=== PATIENT | female | born 1940 | race Caucasian/White ===

== ENCOUNTER 2017-05-07 16:05 | Emergency (ER) | payer OTHER ==
[2017-05-07 16:09] VITALS: BP 140/84; PULSE 84; TEMP 98; BMI 31.7
[2017-05-07] MEDS ORDERED: DIPHTH,PERTUSS(ACELL),TET 0.5 ML DISP.SYRIN IM ONE (16:51)
--- NOTE | 2017-05-07 16:54 | PDOC ---
History of Present Illness - General Chief Complaint: Injury Stated Complaint: LT FINGER LACERATION Time Seen by Provider: 05/07/17 16:21 History Source: Patient Exam Limitations: No Limitations - History of Present Illness Initial Comments: 05/07/17 16:50 76-year-old female presents to the ED with injury to her right thumb while cutting potatoes sustaining a laceration to the tip of her finger. Patient states tetanus was approximately 20 years ago and states is on no blood thinning medication. Patient has no other complaints at this time. Timing/Duration: 1 hour Severity: mild Associated Symptoms: reports: denies symptoms Past History - Travel Traveled outside of the country in the last 30 days: No Close contact w/someone who was outside of country & ill: No - Past Medical History Allergies/Adverse Reactions: Allergies Allergy/AdvReac Type Severity Reaction Status Date / Time Penicillins Allergy Verified 05/07/17 16:09 HTN: Yes - Suicide/Smoking/Psychosocial Hx Smoking History: Never smoked Information on smoking cessation initiated: No Hx Alcohol Use: No Drug/Substance Use Hx: No Substance Use Type: None Patient Lives Alone: No Lives with/in: spouse/SO Review of Systems - Review of Systems Able to Perform ROS?: Yes Constitutional: No: Symptoms Reported Integumentary: Yes: See HPI Neurological: No: Symptoms reported Hematologic/Lymphatic: No: Symptoms Reported *Physical Exam - Vital Signs Last Vital Signs Temp Pulse Resp BP Pulse Ox 98 F 84 18 140/84 99 05/07/17 16:08 05/07/17 16:08 05/07/17 16:08 05/07/17 16:08 05/07/17 16:08 - Physical Exam General Appearance: Yes: Nourished, Appropriately Dressed. No: Apparent Distress Integumentary: positive: Other (noted 1 cm avulsed skin to the tip of rt thumb) Neurologic: positive: Motor Strength 5/5 (ambulatoryambulatory) Medical Decision Making - Medical Decision Making 05/07/17 16:54 Patient with laceration to right thumb. Patient had Surgicel placed with dry sterile gauze and ordered for tetanus. Patient will be discharged home with recommendations to change bandage within 4-5 days. *DC/Admit/Observation/Transfer Diagnosis at time of Disposition: Laceration of right thumb Qualifiers: Encounter type: initial encounter Damage to nail status: without damage Foreign body presence: without foreign body Qualified Code(s): S61.011A - Laceration without foreign body of right thumb without damage to nail, initial encounter - Discharge Dispostion Disposition: HOME Condition at time of disposition: Improved - Referrals Referrals: Kishor Torres MD [Primary Care Provider] - - Patient Instructions Printed Discharge Instructions: DI for Laceration Repair -- Finger Additional Instructions: Keep bandage clean and dry for the next 4-5 days and may change removing slowly. May take Tylenol for discomfort.
== END 2017-05-07 17:19 | disposition home or self-care (01) ==
LOC: JERFT 16:05
PROC: 3E0234Z Introduction of Serum, Toxoid and Vaccine into Muscle, Percutaneous Approach (ICD-10-PCS; principal; 2017-05-07)
PROC: 0HQFXZZ Repair Right Hand Skin, External Approach (ICD-10-PCS; 2017-05-07)
DX: S61.011A Laceration without foreign body of right thumb without damage to nail, initial encounter (principal); W26.0XXA Contact with knife, initial encounter; Y93.G1 Activity, food preparation and clean up; Y92.030 Kitchen in apartment as the place of occurrence of the external cause; I10 Essential (primary) hypertension
CPT/HCPCS: 90715; 99281-25

== ENCOUNTER 2019-08-24 13:56 | Emergency (ER) | payer OTHER ==
[2019-08-24 14:15] VITALS: TEMP 98.6; BMI 27.4
--- NOTE | 2019-08-24 14:22 | PDOC ---
History of Present Illness - General Chief Complaint: Injury Stated Complaint: INJURY Time Seen by Provider: 08/24/19 14:21 History Source: Patient Exam Limitations: No Limitations - History of Present Illness Initial Comments: 08/24/19 14:22 PCP: Previously Dr. Torres, currently none HPI: 78yo F without PCP with PMH hard of hearing, Arthritis, HLD, bladder frequency issue, presenting from home 1 hours s/p mechanical fall at home. Patient was finishing mopping her floor at 13:00, slipped and fell hitting her left hip/thigh and left confucianism. Denies any prodrome, chest pain, SOB, syncope, preceding dizziness, weakness, or visual disturbances. Patient felt dizzy after her fall, felt unable to stand up and crawled to the phone. She reports that EMS arrived, she still felt dizzy when they attempted to help her up so she was lifted into the stretcher and has yet to ambulate. She now endorses "soreness" of the lateral aspect of her proximal thigh and head. States that she doesn't think she broke anything. Endorses feeling a little dehydrated lately with dry mouth. States that she may have diabetes, reporting that her mother had diabetes with onset in her 70s. Also endorses a "trip bladder" that causes urinary frequency. Denies dysuria, pain, foul odor, hematuria. All: PCNs Meds: Per chart PMH: As above PSH: Hysterectomy, right knee replacement, L1-L5 fusion for herniated disks FHx: Late onset diabetes SHx: Lives alone in apartment, nonsmoker / no ETOH or Illicits Past History - Travel Traveled outside of the country in the last 30 days: No Close contact w/someone who was outside of country & ill: No - Past Medical History Allergies/Adverse Reactions: Allergies Allergy/AdvReac Type Severity Reaction Status Date / Time Penicillins Allergy Verified 05/07/17 16:09 Home Medications: Ambulatory Orders Naproxen Sodium [Aleve] 220 mg PO PRN 08/24/19 COPD: No HTN: Yes - Immunization History Immunization Up to Date: No - Psycho Social/Smoking Cessation Hx Smoking History: Unknown if ever smoked Have you smoked in the past 12 months: No Hx Alcohol Use: No Drug/Substance Use Hx: No Substance Use Type: None Review of Systems - Review of Systems Able to Perform ROS?: Yes Is the patient limited Haitian proficient: Yes Constitutional: No: Chills, Fever, Weakness HEENTM: No: Nose Congestion, Throat Pain Respiratory: Yes: Cough. No: Shortness of Breath, Wheezing, Productive cough Cardiac (ROS): Yes: Lightheadedness (intermittently with standing). No: Chest Pain, Edema, Irregular Heart Rate, Palpitations, Syncope, Chest Tightness ABD/GI: No: Constipated, Diarrhea, Nausea, Vomiting : Yes: Frequency (baseline). No: Burning, Dysuria, Discharge, Hematuria, Incontinence Musculoskeletal: Yes: See HPI, Muscle Pain (per hpi). No: Back Pain, Joint Pain , Joint Swelling, Muscle Weakness, Joint Stiffness Integumentary: No: Bruising, Erythema, Rash, Sweating Neurological: No: Headache, Numbness, Tingling, Weakness Psychiatric: No: Stressors, Change in Appetite Endocrine: No: Increased Thirst, Increased Urine, Change in Weight Hematologic/Lymphatic: No: Anemia, Blood Clots, Easy Bleeding All Other Systems: Reviewed and Negative *Physical Exam - Vital Signs Last Vital Signs Temp Pulse Resp BP Pulse Ox 98.6 F 98 H 20 140/82 97 08/24/19 14:00 08/24/19 14:00 08/24/19 14:00 08/24/19 14:00 08/24/19 14:00 - Physical Exam 08/24/19 15:07 VITALS: Mild hypertension, borderline tachycardic (90s-100s), 97% on RA, afebrile GEN: Well appearing, NAD, comfortable, cooperative, laughing, coughing. AAOx3. HEENT: NCAT - no bruising / non-tender in region of contact with floor, EOMI, PERRLA. No facial asymmetry. Poor dentition, edentulous top teeth. Moist mucous membranes. Supple neck w/ FROM. CV: S1/S2, irregular rhythm, mild tachycardia, no m/r/g appreciated. LUNG: Good air movement, crackles at bilateral bases, cough, no wheezes, rales, rhonchi. BACK: Non-tender spine, no CVA tenderness, no bruises or rashes. GI: Soft, ndnt, +BS, no guarding, no rebound. No masses. EXTREMITIES: 2+ distal pulses. Trace b/l LE edema. No obvious deformities of all extremities - both LE same length, able to range without pain, lateral aspect of LLE with palpable presumed hematoma - no ecchymosis or other skin changes, no skin breaks. SKIN: Warm, dry, no rashes appreciated. PSYCH: Normal mood and affect. NEURO: Moving all extremities well. Gait not assessed, will assess after initial testing. ED Treatment Course - LABORATORY CBC & Chemistry Diagram: 08/24/19 15:15 08/24/19 15:15 Medical Decision Making - Medical Decision Making 08/24/19 15:13 78yo F without PCP with PMH hard of hearing, Arthritis, HLD, bladder frequency issue, presenting from home 1 hours s/p mechanical fall at home. History notable for no complaints, limited contact with healthcare professionals recently, lives alone unassisted. Exam notable for irregular HR, cough, lower lung field crackles, unimpressive femur / head exams. Together concerning for r/ o fracture, ICH, assess ambulation ability, undiagnosed cardiovascular disease ( irregular, dizzy), acute vs subacute pulmonary process (cough / crackles). - CBC, CMP, Mg, Cardiac Profile, Coags, BNP - EKG - NCHCT, Cervical Spine - Xray, LLE Hip, Pelvis, Femur, CXR 08/24/19 18:00 - Mild leukocytosis - Normal electrolytes, renal function - Normal LFTs - Normal Troponin - Elevated CPK 316 - BNP wnl - Normal glucose - Given 1g Ofirmev for pain 08/24/19 18:02 - Central canal stenosis c6-c7 noted on CT, no intracranial pathology - Xray films pending - EKG pending 08/24/19 18:14 - L Hip/Pelvis/Femur without acute fracture on my read, official pending - CXR without consolidation, effusion, PTX, normal mediastinum and cardiac contours on my read 08/24/19 18:30 - EKG with sinus arrhythmia, 95 BPM, irregular, sinus, [id number], no ischemic changes - Patient able to ambulate with ease, complains only of minimal discomfort Dispo: Home Discharge - Discharge Information Problems reviewed: Yes Clinical Impression/Diagnosis: Fall Qualifiers: Encounter type: initial encounter Qualified Code(s): W19.XXXA - Unspecified fall, initial encounter Condition: Improved Disposition: HOME - Admission No - Follow up/Referral Referrals: [facility] [place] [Provider Group] Rayo Wing MD [Staff Physician] - - Patient Discharge Instructions Additional Instructions: You were seen and evaluated in the ER after a fall. You were found to not have any broken bones. Please continue to take your home medications as directed. You make take over the counter pain medication as per label instructions. Follow up with the provided primary care doctor within the next 1-3 days to establish care and have follow up. Return to the ED for any new or concerning symptoms which may include but are not limited to: nausea, vomiting, headache, inability to walk. - Post Discharge Activity
--- NOTE | 2019-08-24 14:56 | PDOC ---
Documentation entered by Bismark Villavicencio SCRIBE, acting as scribe for Rina Driscoll MD. Rina Driscoll MD: This documentation has been prepared by the Maye cabral Nirvannie, SCRIBE, under my direction and personally reviewed by me in its entirety. I confirm that the documentation accurately reflects all work, treatment, procedures, and medical decision making performed by me. Attending Attestation - Resident Resident Name: JacobBill - ED Attending Attestation I have performed the following: I have examined & evaluated the patient, The case was reviewed & discussed with the resident, I agree w/resident's findings & plan, Exceptions are as noted - HPI HPI: 08/24/19 14:48 78 yo f ho arthritis, hld, hysterctomy, right knee surgery, here s/p slip and fall, landed on left hip, c/o left hip pain. has not ambulated since here fall because she was feeling dizzy when she stood up. no mod factors. no f/c no cp no syncope. uncertain if she hit her head when she fell. no h/o prior hip surgery. - Physicial Exam PE: 08/24/19 14:54 awake alert head atraumatic no c spine tenderness. lungs with crackles at bases. heart irreg reg. abd soft nt pelvis. From at bilat hips. no spinal tenderness. moves all four ext. GCS 15. - Medical Decision Making 08/24/19 14:55 78 yo F not following with a doctor currently. lives alone, s/p sli pand fall head trauma. hip pain left. plan r/o fx, ct head c xpine. also pt c/o feeling dizzy, on exam bilat lungs with crackles. will cxr xray pelvis, and ct head. labs with cbc cmp trop bnp. 08/24/19 17:[address] cervical spine read, and xrays, signed out to oncoming attending. will rquire trial ambulation for discharge. ct head negatve for acute disease.
[2019-08-24 16:02] LABS: BASO % 0.6 % (0-2.0); EOS % 0.5 % (0-4.5); HEMATOCRIT 38.4 % (32.4-45.2); HEMOGLOBIN 12.7 GM/dL (10.7-15.3); LYMPH % 8.6 % (8-40); MCH 33.8 pg (25.7-33.7); MCHC 33.1 g/dl (32.0-36.0); MEAN CELL VOLUME 101.9 fl (80-96); MONO % 5.3 % (3.8-10.2); PLATELET COUNT 223 K/MM3 (134-434); RBC 3.76 M/mm3 (3.60-5.2); RDW 13.1 % (11.6-15.6)
[2019-08-24 16:15] LABS: INR 0.93 (0.83-1.09)
[2019-08-24 16:18] LABS: ACTIVATED PTT 35.1 SECONDS (25.2-36.5)
[2019-08-24] MEDS ORDERED: LORazepam 2 MG TABLET PO ONE (16:25)
[2019-08-24 16:28] LABS: ALBUMIN 4.1 g/dl (3.4-5.0); BILIRUBIN,TOTAL 0.5 mg/dL (0.2-1); BLOOD UREA NITROGEN 22.3 mg/dL (7-18); CALCIUM 8.7 mg/dL (8.5-10.1); CREATININE 0.9 mg/dL (0.55-1.3); MAGNESIUM 2.1 mg/dL (1.8-2.4); POTASSIUM 4.3 mmol/L (3.5-5.1); TOT PROT 7.3 g/dl (6.4-8.2)
[2019-08-24 16:30] LABS: N-TERMINAL BNP 180.1 pg/ml (5-450)
[2019-08-24] MEDS ORDERED: ACETAMINOPHEN 1000 MG/100 ML VIAL (NON FORMULARY) IVPB ONE (17:23)
[2019-08-24] MEDS ORDERED: ACETAMINOPHEN INJECTION 200 ML IVPB ONE (18:04)
[2019-08-24 19:08] VITALS: BP 132/80; PULSE 90
--- NOTE | 2019-08-25 11:51 | EKG ---
Test Reason : Blood Pressure : / mmHG Vent. Rate : 095 BPM Atrial Rate : 095 BPM P-R Int : 128 ms QRS Dur : 082 ms QT Int : 354 ms P-R-T Axes : 066 017 046 degrees QTc Int : 444 ms SINUS RHYTHM WITH PREMATURE SUPRAVENTRICULAR COMPLEXES NONSPECIFIC ST ABNORMALITY ABNORMAL ECG WHEN COMPARED WITH ECG OF 16-JUN-2003 11:40, PREMATURE SUPRAVENTRICULAR COMPLEXES ARE NOW PRESENT T WAVE AMPLITUDE HAS DECREASED IN ANTERIOR LEADS QT HAS LENGTHENED Confirmed by MARGARITO HOUSER MD ([id number]) on 08/25/2019 11:51:27 AM Referred By: Confirmed By:MARGARITO HOUSER MD
== END 2019-08-24 21:59 | disposition home or self-care (01) ==
LOC: JER 13:56
DX: M25.552 Pain in left hip (principal); M79.652 Pain in left thigh; W01.0XXA Fall on same level from slipping, tripping and stumbling without subsequent striking against object, initial encounter; Y93.E5 Activity, floor mopping and cleaning; Y92.038 Other place in apartment as the place of occurrence of the external cause; Y99.8 Other external cause status; E78.5 Hyperlipidemia, unspecified; M12.9 Arthropathy, unspecified; H91.93 Unspecified hearing loss, bilateral; R35.0 Frequency of micturition
CPT/HCPCS: 36415; 70450-TC; 71045-TC-FY; 72125-TC; 73523-TC-FY; 73552-TC-LT-FY; 80053; 82550; 82553; 83735; 83880; 84484; 85025; 85610; 85730; 93005; 93010; 99283-25; J0131

== ENCOUNTER 2021-07-03 03:56 | Inpatient (IN) | payer BC, OTHER ==
[2021-07-03] MEDS ORDERED: LIDOCAINE 5% TOPICAL PATCH TP ONE (04:44)
[2021-07-03] MEDS ORDERED: SODIUM CHLORIDE 0.9% 500 ML INFUS.BAG IV ONE (04:45)
[2021-07-03] MEDS ORDERED: ACETAMINOPHEN 1000 MG/100 ML VIAL IVPB ONE (04:45)
[2021-07-03] MEDS ORDERED: LIDOCAINE 5% TOPICAL PATCH ONE (04:53)
[2021-07-03] MEDS ORDERED: ACETAMINOPHEN INJECTION 100 ML IVPB ONE (04:53)
[2021-07-03 05:48] LABS: BASO % 0.7 % (0-2.0); EOS % 0.1 % (0-4.5); HEMATOCRIT 37.9 % (32.4-45.2); LYMPH % 8.1 % (8-40); MCH 34.5 pg (25.7-33.7); MCHC 34.3 g/dl (32.0-36.0); MEAN CELL VOLUME 100.5 fl (80-96); MEAN PLT VOLUME 7.5 fl (7.5-11.1); MONO % 9.3 % (3.8-10.2); NEUT % 81.8 % (42.8-82.8); PLATELET COUNT 215 10^3/uL (134-434); RBC 3.77 M/mm3 (3.60-5.2); RDW 12.8 % (11.6-15.6)
[2021-07-03 05:51] LABS: EPI CELLS 12 /uL (0-25.1); HYALINE CASTS 3 /uL (0-3.1); URINE APPEARANCE TURBID; URINE BACTERIA >9,000 /uL (0-1359); URINE BILIRUBIN NEGATIVE (NEGATIVE); URINE COLOR YELLOW; URINE GLUCOSE (UA) NEGATIVE (NEGATIVE); URINE KETONE NEGATIVE (NEGATIVE); URINE LEUK ESTERASE 3+ (NEGATIVE); URINE NITRITE POSITIVE (NEGATIVE); URINE PROTEIN 2+ (NEGATIVE); URINE RBC 142 /uL (0-23.9); URINE UROBILINOGEN 0.2 mg/dL (0.2-1.0); URINE WBC 2587 /uL (0-25.8)
[2021-07-03 06:06] LABS: CHLORIDE 111 mmol/L (98-107); SODIUM 143 mmol/L (136-145)
[2021-07-03 06:08] LABS: ALBUMIN 3.2 g/dl (3.4-5.0); ANION GAP 7 MMOL/L (8-16); BLOOD UREA NITROGEN 25.1 mg/dL (7-18); CALCIUM 8.8 mg/dL (8.5-10.1); CO2 25 mmol/L (21-32); GLUCOSE,RANDOM 143 mg/dL (74-106)
[2021-07-03 06:11] LABS: SGPT/ALT 48 U/L (13-61)
[2021-07-03 06:12] LABS: CREATININE 1.2 mg/dL (0.55-1.3); SGOT/AST 29 U/L (15-37)
[2021-07-03 06:13] LABS: BILIRUBIN,TOTAL 0.5 mg/dL (0.2-1); TOT PROT 7.2 g/dl (6.4-8.2)
[2021-07-03 06:14] LABS: ALK PHOS 64 U/L (45-117)
[2021-07-03] MEDS ORDERED: LIDOCAINE PATCH REMOVAL MC ONE (17:00)
[2021-07-03] MEDS: TAMSULOSIN HCL 0.4 MG CAP PO SCH (17:09)
[2021-07-03] MEDS: ACETAMINOPHEN 325 MG TABLET (FP) PO PRN (17:14)
[2021-07-03] MEDS ORDERED: HEPARIN NA (PORCINE) 5,000 UNITS/ML 1ML VIAL SQ SCH (22:00)
[2021-07-04 08:46] LABS: BASO % 0.8 % (0-2.0); EOS % 1.3 % (0-4.5); HEMOGLOBIN 12.7 GM/dL (10.7-15.3); LYMPH % 14.4 % (8-40); MCH 33.9 pg (25.7-33.7); MCHC 34.2 g/dl (32.0-36.0); MEAN CELL VOLUME 99.2 fl (80-96); MEAN PLT VOLUME 7.1 fl (7.5-11.1); MONO % 11.4 % (3.8-10.2); NEUT % 72.1 % (42.8-82.8); PLATELET COUNT 212 10^3/uL (134-434); RBC 3.73 M/mm3 (3.60-5.2); RDW 13.1 % (11.6-15.6); WHITE BLOOD COUNT 7.8 K/mm3 (4.0-10.0)
[2021-07-04] MEDS: TAMSULOSIN HCL 0.4 MG CAP PO SCH (08:56)
[2021-07-04 09:17] LABS: ALBUMIN 2.8 g/dl (3.4-5.0); BLOOD UREA NITROGEN 23.6 mg/dL (7-18); CALCIUM 8.7 mg/dL (8.5-10.1)
[2021-07-04 09:18] LABS: BILIRUBIN,TOTAL 0.4 mg/dL (0.2-1); MAGNESIUM 2.4 mg/dL (1.8-2.4)
[2021-07-04 09:19] LABS: TOT PROT 6.8 g/dl (6.4-8.2)
[2021-07-04 09:20] LABS: PHOSPHOROUS 3.6 mg/dL (2.5-4.9)
[2021-07-04] MEDS ORDERED: amLODIPine BESYLATE 5 MG TABLET (FP) PO ONE (09:35)
[2021-07-04] MEDS ORDERED: amLODIPine BESYLATE 5 MG TABLET (FP) ONE (10:37)
[2021-07-04] MEDS ORDERED: ACETAMINOPHEN INJECTION 100 ML IVPB ONE (10:46)
[2021-07-04] MEDS: ACETAMINOPHEN 325 MG TABLET (FP) PO PRN (21:05)
[2021-07-05] MEDS: ACETAMINOPHEN 325 MG TABLET (FP) PO PRN ×2 (05:08→22:45)
[2021-07-05] MEDS: TAMSULOSIN HCL 0.4 MG CAP PO SCH (08:53)
[2021-07-05] MEDS: ENOXAPARIN NA (PORCINE) 40 MG/0.4 ML DISP.SYRIN SQ SCH (08:59)
[2021-07-05] MEDS: amLODIPine BESYLATE 5 MG TABLET (FP) PO SCH (09:00)
[2021-07-05 09:59] LABS: HEMATOCRIT 37.2 % (32.4-45.2); MCH 34.8 pg (25.7-33.7); MCHC 34.9 g/dl (32.0-36.0); MEAN CELL VOLUME 99.7 fl (80-96); MEAN PLT VOLUME 7.3 fl (7.5-11.1); PLATELET COUNT 228 10^3/uL (134-434); RBC 3.73 M/mm3 (3.60-5.2); RDW 12.4 % (11.6-15.6); WHITE BLOOD COUNT 7.4 K/mm3 (4.0-10.0)
[2021-07-05 10:16] LABS: ALBUMIN 2.8 g/dl (3.4-5.0); BLOOD UREA NITROGEN 23.6 mg/dL (7-18); CALCIUM 8.3 mg/dL (8.5-10.1); MAGNESIUM 2.3 mg/dL (1.8-2.4)
[2021-07-05 10:19] LABS: PHOSPHOROUS 3.8 mg/dL (2.5-4.9)
[2021-07-05 10:21] LABS: BILIRUBIN,TOTAL 0.5 mg/dL (0.2-1); TOT PROT 6.8 g/dl (6.4-8.2)
[2021-07-05 10:28] LABS: CREATININE 1.1 mg/dL (0.55-1.3)
[2021-07-05] MEDS: KETOROLAC TROMETHAMINE 15 MG/ML VIAL IVPUSH PRN (17:33)
[2021-07-06] MEDS: TAMSULOSIN HCL 0.4 MG CAP PO SCH (07:57)
[2021-07-06] MEDS: ENOXAPARIN NA (PORCINE) 40 MG/0.4 ML DISP.SYRIN SQ SCH (09:02)
[2021-07-06] MEDS: amLODIPine BESYLATE 5 MG TABLET (FP) PO SCH (09:02)
[2021-07-06 10:50] LABS: EOS % 1.6 % (0-4.5); HEMATOCRIT 37.6 % (32.4-45.2); LYMPH % 19.2 % (8-40); MCH 34.3 pg (25.7-33.7); MCHC 34.5 g/dl (32.0-36.0); MEAN CELL VOLUME 99.5 fl (80-96); MEAN PLT VOLUME 6.8 fl (7.5-11.1); MONO % 15.3 % (3.8-10.2); NEUT % 62.9 % (42.8-82.8); PLATELET COUNT 260 10^3/uL (134-434); RBC 3.78 M/mm3 (3.60-5.2); RDW 12.9 % (11.6-15.6); WHITE BLOOD COUNT 9.9 K/mm3 (4.0-10.0)
[2021-07-06 11:54] LABS: ALBUMIN 2.8 g/dl (3.4-5.0); BILIRUBIN,TOTAL 0.3 mg/dL (0.2-1); BLOOD UREA NITROGEN 22.9 mg/dL (7-18); CALCIUM 8.3 mg/dL (8.5-10.1); CREATININE 1.1 mg/dL (0.55-1.3); MAGNESIUM 2.1 mg/dL (1.8-2.4); TOT PROT 7.1 g/dl (6.4-8.2)
[2021-07-06] MEDS: ACETAMINOPHEN 325 MG TABLET (FP) PO PRN (19:42)
[2021-07-07] MEDS ORDERED: PT OWN MED DRAWER 7, Y5N ONE (09:19)
[2021-07-07] MEDS: amLODIPine BESYLATE 5 MG TABLET (FP) PO SCH (09:25)
[2021-07-07] MEDS: TAMSULOSIN HCL 0.4 MG CAP PO SCH (09:25)
[2021-07-07 09:42] LABS: HEMATOCRIT 38.2 % (32.4-45.2); HEMOGLOBIN 13.1 GM/dL (10.7-15.3); MCH 34.3 pg (25.7-33.7); MCHC 34.2 g/dl (32.0-36.0); MEAN CELL VOLUME 100.2 fl (80-96); PLATELET COUNT 286 10^3/uL (134-434); RBC 3.82 M/mm3 (3.60-5.2); WHITE BLOOD COUNT 10.1 K/mm3 (4.0-10.0)
[2021-07-07] MEDS: ENOXAPARIN NA (PORCINE) 40 MG/0.4 ML DISP.SYRIN SQ SCH (10:00)
[2021-07-07 10:23] LABS: ALBUMIN 2.9 g/dl (3.4-5.0); BLOOD UREA NITROGEN 20.9 mg/dL (7-18)
[2021-07-07 10:24] LABS: MAGNESIUM 2.5 mg/dL (1.8-2.4)
[2021-07-07 10:26] LABS: PHOSPHOROUS 3.4 mg/dL (2.5-4.9)
[2021-07-07 10:28] LABS: BILIRUBIN,TOTAL 0.5 mg/dL (0.2-1); TOT PROT 7.4 g/dl (6.4-8.2)
[2021-07-07 11:28] VITALS: BMI 31.8
[2021-07-07] MEDS: ACETAMINOPHEN 325 MG TABLET (FP) PO PRN (20:20)
[2021-07-07] MEDS: KETOROLAC TROMETHAMINE 15 MG/ML VIAL IVPUSH PRN (22:12)
[2021-07-08] MEDS: TAMSULOSIN HCL 0.4 MG CAP PO SCH (08:10)
[2021-07-08 09:04] LABS: BASO % 0.8 % (0-2.0); EOS % 1.7 % (0-4.5); HEMATOCRIT 37.6 % (32.4-45.2); HEMOGLOBIN 12.7 GM/dL (10.7-15.3); LYMPH % 17.4 % (8-40); MCHC 33.7 g/dl (32.0-36.0); MONO % 8.6 % (3.8-10.2); NEUT % 71.5 % (42.8-82.8); PLATELET COUNT 284 10^3/uL (134-434); RBC 3.73 M/mm3 (3.60-5.2); RDW 13.1 % (11.6-15.6); WHITE BLOOD COUNT 8.6 K/mm3 (4.0-10.0)
[2021-07-08 09:13] LABS: CALCIUM 8.8 mg/dL (8.5-10.1)
[2021-07-08 09:14] LABS: ALBUMIN 2.7 g/dl (3.4-5.0); BLOOD UREA NITROGEN 23.7 mg/dL (7-18); MAGNESIUM 2.6 mg/dL (1.8-2.4)
[2021-07-08] MEDS ORDERED: SODIUM CHLORIDE 0.45% 1,000 ML IV SCH ×2 (09:15→12:15)
[2021-07-08 09:17] LABS: PHOSPHOROUS 3.5 mg/dL (2.5-4.9)
[2021-07-08 09:19] LABS: BILIRUBIN,TOTAL 0.4 mg/dL (0.2-1); TOT PROT 7.1 g/dl (6.4-8.2)
[2021-07-08] MEDS ORDERED: PROPOFOL 20 ML ONE ×3 (10:29)
[2021-07-08] MEDS ORDERED: SUCCINYLCHOLINE CHLORIDE 200 MG/10 ML SYRINGE ONE (10:36)
[2021-07-08] MEDS: amLODIPine BESYLATE 5 MG TABLET (FP) PO SCH (10:50)
[2021-07-08] MEDS ORDERED: HYDROmorphone HCl 2 MG/ML VIAL IM ONE (11:57)
[2021-07-08] MEDS ORDERED: ONDANSETRON 4 MG/2 ML VIAL IVPUSH PRN (14:24)
[2021-07-08] MEDS: LACTATED RINGERS SOLUTION 1,000 ML IV SCH ×2 (14:52→23:12)
[2021-07-08] MEDS: oxyCODONE HCL 5 MG TABLET PO PRN ×2 (15:07→20:43)
[2021-07-08] MEDS: ACETAMINOPHEN 325 MG TABLET (FP) PO PRN (20:42)
[2021-07-09] MEDS: ACETAMINOPHEN 325 MG TABLET (FP) PO PRN ×2 (02:25→11:50)
[2021-07-09] MEDS: oxyCODONE HCL 5 MG TABLET PO PRN ×3 (02:25→20:46)
[2021-07-09] MEDS: LACTATED RINGERS SOLUTION 1,000 ML IV SCH (08:01)
[2021-07-09] MEDS: TAMSULOSIN HCL 0.4 MG CAP PO SCH ×2 (08:30→11:49)
[2021-07-09 08:53] LABS: BASO % 0.4 % (0-2.0); HEMATOCRIT 32.8 % (32.4-45.2); MCH 33.8 pg (25.7-33.7); MCHC 33.5 g/dl (32.0-36.0); MEAN CELL VOLUME 101.1 fl (80-96); MEAN PLT VOLUME 7.3 fl (7.5-11.1); MONO % 4.8 % (3.8-10.2); NEUT % 86.8 % (42.8-82.8); PLATELET COUNT 220 10^3/uL (134-434); RBC 3.25 M/mm3 (3.60-5.2); RDW 13.1 % (11.6-15.6); WHITE BLOOD COUNT 17.6 K/mm3 (4.0-10.0)
[2021-07-09] MEDS ORDERED: amLODIPine BESYLATE 5 MG TABLET (FP) PO SCH (10:00)
[2021-07-09 12:06] LABS: ALBUMIN 2.3 g/dl (3.4-5.0); BILIRUBIN,TOTAL 0.6 mg/dL (0.2-1); BLOOD UREA NITROGEN 22.8 mg/dL (7-18); CREATININE 1.3 mg/dL (0.55-1.3); MAGNESIUM 2.1 mg/dL (1.8-2.4); PHOSPHOROUS 3.7 mg/dL (2.5-4.9); TOT PROT 6.3 g/dl (6.4-8.2)
[2021-07-09] MEDS ORDERED: SODIUM CHLORIDE 0.45% 1,000 ML IV SCH (12:45)
[2021-07-09] MEDS ORDERED: SODIUM CHLORIDE 1,000 ML IV SCH (12:45)
[2021-07-09] MEDS ORDERED: POLYETHYLENE GLYCOL 3350 119 GM BTL PO ONE (19:48)
[2021-07-10] MEDS: oxyCODONE HCL 5 MG TABLET PO PRN ×3 (02:25→17:54)
[2021-07-10] MEDS ORDERED: ALBUTEROL SO4 2.5/IPRATROPIUM 0.5 INH SOL 3 ML VIAL.NEB. NEB ONE (08:55)
[2021-07-10 09:25] LABS: HEMATOCRIT 32.1 % (32.4-45.2); MCHC 34.3 g/dl (32.0-36.0); MEAN CELL VOLUME 99.2 fl (80-96); MEAN PLT VOLUME 6.9 fl (7.5-11.1); PLATELET COUNT 228 10^3/uL (134-434); RBC 3.23 M/mm3 (3.60-5.2); RDW 12.9 % (11.6-15.6); WHITE BLOOD COUNT 14.4 K/mm3 (4.0-10.0)
[2021-07-10 11:25] LABS: ALBUMIN 2.3 g/dl (3.4-5.0); BILIRUBIN,TOTAL 0.5 mg/dL (0.2-1); BLOOD UREA NITROGEN 21.6 mg/dL (7-18); CALCIUM 8.2 mg/dL (8.5-10.1); CREATININE 1.3 mg/dL (0.55-1.3); MAGNESIUM 2.2 mg/dL (1.8-2.4); PHOSPHOROUS 2.8 mg/dL (2.5-4.9); TOT PROT 6.5 g/dl (6.4-8.2)
[2021-07-10] MEDS: ENOXAPARIN NA (PORCINE) 40 MG/0.4 ML DISP.SYRIN SQ SCH (11:43)
[2021-07-10] MEDS: amLODIPine BESYLATE 5 MG TABLET (FP) PO SCH (11:44)
[2021-07-10] MEDS: TAMSULOSIN HCL 0.4 MG CAP PO SCH (11:44)
[2021-07-10] MEDS: ACETAMINOPHEN 325 MG TABLET (FP) PO PRN (20:10)
[2021-07-11] MEDS: oxyCODONE HCL 5 MG TABLET PO PRN (07:41)
[2021-07-11] MEDS: TAMSULOSIN HCL 0.4 MG CAP PO SCH (07:41)
[2021-07-11] MEDS: amLODIPine BESYLATE 5 MG TABLET (FP) PO SCH (09:16)
[2021-07-11] MEDS: ENOXAPARIN NA (PORCINE) 40 MG/0.4 ML DISP.SYRIN SQ SCH (09:16)
[2021-07-11 09:45] LABS: HEMATOCRIT 34.5 % (32.4-45.2); HEMOGLOBIN 11.7 GM/dL (10.7-15.3); MCH 33.8 pg (25.7-33.7); MCHC 33.9 g/dl (32.0-36.0); MEAN CELL VOLUME 99.8 fl (80-96); MEAN PLT VOLUME 7.1 fl (7.5-11.1); PLATELET COUNT 266 10^3/uL (134-434); RBC 3.46 M/mm3 (3.60-5.2); RDW 13.1 % (11.6-15.6); WHITE BLOOD COUNT 11.4 K/mm3 (4.0-10.0)
[2021-07-11 10:45] LABS: CALCIUM 8.7 mg/dL (8.5-10.1)
[2021-07-11] MEDS: traMADol HCL 50 MG TABLET PO PRN (15:16)
[2021-07-11] MEDS: ACETAMINOPHEN 325 MG TABLET (FP) PO PRN (22:07)
[2021-07-12] MEDS: ACETAMINOPHEN 325 MG TABLET (FP) PO PRN (02:37)
[2021-07-12 09:11] LABS: BASO % 0.6 % (0-2.0); EOS % 1.5 % (0-4.5); HEMATOCRIT 35.8 % (32.4-45.2); HEMOGLOBIN 12.2 GM/dL (10.7-15.3); LYMPH % 12.8 % (8-40); MCH 33.7 pg (25.7-33.7); MEAN CELL VOLUME 99.1 fl (80-96); MEAN PLT VOLUME 6.8 fl (7.5-11.1); MONO % 4.9 % (3.8-10.2); NEUT % 80.2 % (42.8-82.8); PLATELET COUNT 295 10^3/uL (134-434); RBC 3.61 M/mm3 (3.60-5.2); RDW 13.1 % (11.6-15.6); WHITE BLOOD COUNT 10.1 K/mm3 (4.0-10.0)
[2021-07-12] MEDS: traMADol HCL 50 MG TABLET PO PRN ×2 (10:10→19:42)
[2021-07-12] MEDS: amLODIPine BESYLATE 5 MG TABLET (FP) PO SCH (10:10)
[2021-07-12] MEDS: TAMSULOSIN HCL 0.4 MG CAP PO SCH (10:10)
[2021-07-12] MEDS: ENOXAPARIN NA (PORCINE) 40 MG/0.4 ML DISP.SYRIN SQ SCH (10:11)
[2021-07-12 12:55] LABS: BLOOD UREA NITROGEN 25.2 mg/dL (7-18); CALCIUM 8.8 mg/dL (8.5-10.1); MAGNESIUM 2.4 mg/dL (1.8-2.4); PHOSPHOROUS 3.5 mg/dL (2.5-4.9)
[2021-07-13] MEDS: TAMSULOSIN HCL 0.4 MG CAP PO SCH (07:59)
[2021-07-13 08:47] LABS: HEMATOCRIT 33.2 % (32.4-45.2); HEMOGLOBIN 11.5 GM/dL (10.7-15.3); MCHC 34.5 g/dl (32.0-36.0); MEAN CELL VOLUME 98.6 fl (80-96); MEAN PLT VOLUME 6.7 fl (7.5-11.1); PLATELET COUNT 302 10^3/uL (134-434); RBC 3.36 M/mm3 (3.60-5.2); RDW 13.1 % (11.6-15.6); WHITE BLOOD COUNT 9.4 K/mm3 (4.0-10.0)
[2021-07-13] MEDS: ENOXAPARIN NA (PORCINE) 40 MG/0.4 ML DISP.SYRIN SQ SCH (10:02)
[2021-07-13] MEDS: amLODIPine BESYLATE 5 MG TABLET (FP) PO SCH (10:17)
[2021-07-13] MEDS: traMADol HCL 50 MG TABLET PO PRN ×2 (10:28→18:40)
[2021-07-13] MEDS: ACETAMINOPHEN 325 MG TABLET (FP) PO PRN (23:16)
[2021-07-14] MEDS: ACETAMINOPHEN 325 MG TABLET (FP) PO PRN ×2 (06:28→15:01)
[2021-07-14] MEDS: TAMSULOSIN HCL 0.4 MG CAP PO SCH (08:38)
[2021-07-14] MEDS: amLODIPine BESYLATE 5 MG TABLET (FP) PO SCH (09:17)
[2021-07-14] MEDS: ENOXAPARIN NA (PORCINE) 40 MG/0.4 ML DISP.SYRIN SQ SCH (09:17)
[2021-07-14] MEDS ORDERED: guaiFENesin/D-METHORPHAN HB 10 ML UNIT-DOSE CUPS PO ONE (21:01)
[2021-07-15] MEDS: ACETAMINOPHEN 325 MG TABLET (FP) PO PRN (05:24)
[2021-07-15] MEDS: amLODIPine BESYLATE 5 MG TABLET (FP) PO SCH (10:51)
[2021-07-15] MEDS: ENOXAPARIN NA (PORCINE) 40 MG/0.4 ML DISP.SYRIN SQ SCH (10:51)
[2021-07-15] MEDS: TAMSULOSIN HCL 0.4 MG CAP PO SCH (10:51)
[2021-07-15] MEDS ORDERED: guaiFENesin/D-M SUGAR-FREE/ACLHOL-FREE 5 ML UNIT DOSE PO ONE (11:30)
[2021-07-15 12:40] LABS: HEMOGLOBIN 11.7 GM/dL (10.7-15.3); MCH 34.3 pg (25.7-33.7); MCHC 34.4 g/dl (32.0-36.0); MEAN CELL VOLUME 99.6 fl (80-96); MEAN PLT VOLUME 7.1 fl (7.5-11.1); PLATELET COUNT 392 10^3/uL (134-434); RBC 3.42 M/mm3 (3.60-5.2); RDW 13.3 % (11.6-15.6); WHITE BLOOD COUNT 10.4 K/mm3 (4.0-10.0)
[2021-07-15 12:57] LABS: ALBUMIN 2.5 g/dl (3.4-5.0); BLOOD UREA NITROGEN 26.1 mg/dL (7-18); CALCIUM 8.8 mg/dL (8.5-10.1); MAGNESIUM 2.2 mg/dL (1.8-2.4)
[2021-07-15 13:00] LABS: PHOSPHOROUS 3.3 mg/dL (2.5-4.9)
[2021-07-15 13:02] LABS: BILIRUBIN,TOTAL 0.3 mg/dL (0.2-1); TOT PROT 7.1 g/dl (6.4-8.2)
[2021-07-15] MEDS: traMADol HCL 50 MG TABLET PO PRN (15:41)
[2021-07-15 17:57] VITALS: BP 126/75; PULSE 80; TEMP 98.5
== END 2021-07-15 18:39 | DRG 690 ==
LOC: JER 03:56 → INTOOBSV 06:16 → JERBED 06:16 → UNDOADMOB 06:16 → JERBED 08:18 → J5S 12:22 → OBSVTOIN 07-04 10:58 → J5S 07-04 20:24 → UNDODISIN 07-15 16:31
PROVIDERS: ADMIT Internal Medicine; ATTEND Internal Medicine
PROC: 0TF38ZZ Fragmentation in Right Kidney Pelvis, Via Natural or Artificial Opening Endoscopic (ICD-10-PCS; 2021-07-08)
PROC: BT1DZZZ Fluoroscopy of Right Kidney, Ureter and Bladder (ICD-10-PCS; 2021-07-08)
PROC: 0T9030Z Drainage of Right Kidney with Drainage Device, Percutaneous Approach (ICD-10-PCS; 2021-07-08)
PROC: 0TC38ZZ Extirpation of Matter from Right Kidney Pelvis, Via Natural or Artificial Opening Endoscopic (ICD-10-PCS; principal; 2021-07-08 09:00)
PROC: 0TF68ZZ Fragmentation in Right Ureter, Via Natural or Artificial Opening Endoscopic (ICD-10-PCS; 2021-07-08 09:00)
PROC: 0TF6XZZ Fragmentation in Right Ureter, External Approach (ICD-10-PCS; 2021-07-08 09:00)
DX: N13.6 Pyonephrosis (principal); E87.1 Hypo-osmolality and hyponatremia; E87.0 Hyperosmolality and hypernatremia; M06.9 Rheumatoid arthritis, unspecified; B96.20 Unspecified Escherichia coli [E. coli] as the cause of diseases classified elsewhere; E86.0 Dehydration; I10 Essential (primary) hypertension; D72.829 Elevated white blood cell count, unspecified; E78.5 Hyperlipidemia, unspecified; Z88.0 Allergy status to penicillin; N39.0 Urinary tract infection, site not specified
CPT/HCPCS: 36415; 50432; 71045-TC-FY; 74176-TC; 76000-TC-FY; 76775-TC; 76856-TC; 80048; 80053; 81003; 82360; 82962; 83735; 84100; 84484; 85025; 85027; 87040; 87070; 87075; 87086; 87102; 87116; 87186; 87205; 87206; 87210; 88108; 88300-TC; 93005; 93010; 94010; 94760; 97116-GP; 97162-GP; 99285-25; C9803; G0378; J0131; U0003; U0005

== ENCOUNTER 2021-09-09 05:17 | Day surgery (SDC) | payer OTHER ==
[2021-08-15 13:37] VITALS: BMI 30.7
[2021-09-09] MEDS ORDERED: ACETAMINOPHEN 1000 MG/100 ML BAG IVPB ONE (10:07)
[2021-09-09] MEDS ORDERED: SODIUM CHLORIDE 500 ML IV SCH (12:45)
[2021-09-09] MEDS ORDERED: MIDAZOLAM HCL 2 MG/2 ML SINGLE DOSE VIAL IVPUSH ONE (13:10)
[2021-09-09 14:35] VITALS: TEMP 97.5
[2021-09-09 15:00] VITALS: BP 108/65; PULSE 87
== END 2021-09-09 15:00 | disposition home or self-care (01) ==
LOC: JRADIR 05:17
PROVIDERS: ATTEND Urology
PROC: 0T25X0Z Change Drainage Device in Kidney, External Approach (ICD-10-PCS; principal; 2021-09-09)
DX: N20.0 Calculus of kidney (principal)
CPT/HCPCS: 50435; 50693; J0131

== ENCOUNTER 2021-09-28 21:50 | Inpatient (IN) | payer OTHER ==
[2021-09-28 23:26] LABS: BASO % 0.5 % (0-2.0); EOS % 0.2 % (0-4.5); HEMATOCRIT 32.4 % (32.4-45.2); HEMOGLOBIN 10.6 GM/dL (10.7-15.3); LYMPH % 9.7 % (8-40); MCH 31.6 pg (25.7-33.7); MCHC 32.9 g/dl (32.0-36.0); MEAN CELL VOLUME 96.1 fl (80-96); MEAN PLT VOLUME 6.1 fl (7.5-11.1); MONO % 5.6 % (3.8-10.2); PLATELET COUNT 412 10^3/uL (134-434); RBC 3.37 M/mm3 (3.60-5.2); RDW 15.2 % (11.6-15.6); WHITE BLOOD COUNT 13.3 K/mm3 (4.0-10.0)
[2021-09-28 23:33] LABS: INR 1.26 (0.83-1.09); PROTHROMBIN TIME (PATIENT) 14.5 SEC (9.7-13.0)
[2021-09-28 23:36] LABS: ACTIVATED PTT 37.2 SECONDS (25.2-36.5)
[2021-09-28 23:43] LABS: CALCIUM 9.2 mg/dL (8.5-10.1)
[2021-09-28 23:44] LABS: ALBUMIN 2.7 g/dl (3.4-5.0); BLOOD UREA NITROGEN 19.8 mg/dL (7-18)
[2021-09-28 23:47] LABS: CREATININE 1.2 mg/dL (0.55-1.3)
[2021-09-28 23:48] LABS: BILIRUBIN,TOTAL 0.5 mg/dL (0.2-1); TOT PROT 7.9 g/dl (6.4-8.2)
[2021-09-29] MEDS ORDERED: SULFAMETHOXAZOLE 80 MG/TRIMETHOPRIM 16 MG/ML VIAL IVPB ONE (00:19)
[2021-09-29] MEDS ORDERED: SULFAMETHOXAZOLE 80 MG/TRIMETHOPRIM 16 MG/ML VIAL IVPB SCH (03:30)
[2021-09-29] MEDS ORDERED: SODIUM CHLORIDE 500 ML IV STA (05:45)
[2021-09-29] MEDS ORDERED: AZTREONAM 2 GM/10 ML SYRINGE (RESTRICTED TO ID) IVPUSH SCH (05:45)
[2021-09-29] MEDS ORDERED: AZTREONAM 1 GM VIAL (RESTRICTED TO ID) ONE (06:56)
[2021-09-29] MEDS: AZTREONAM 2 GM in DEXTROSE 5%-WATER 100 ML IVPB SCH ×4 (07:04→18:22)
[2021-09-29 09:48] LABS: URINE APPEARANCE CLEAR; URINE BILIRUBIN NEGATIVE (NEGATIVE); URINE COLOR YELLOW; URINE GLUCOSE (UA) NEGATIVE (NEGATIVE); URINE KETONE NEGATIVE (NEGATIVE); URINE NITRITE POSITIVE (NEGATIVE); URINE PROTEIN TRACE (NEGATIVE); URINE UROBILINOGEN 0.2 mg/dL (0.2-1.0)
[2021-09-29 09:49] LABS: EPI CELLS 51 /uL (0-25.1); HYALINE CASTS 0.64 /uL (0-3.1); URINE BACTERIA 9779.7 /uL (0-1359); URINE LEUK ESTERASE NEGATIVE (NEGATIVE); URINE RBC 30.3 /uL (0-23.9); URINE WBC 13.7 /uL (0-25.8)
[2021-09-29 09:54] LABS: HEMOGLOBIN 9.6 GM/dL (10.7-15.3); MCH 31.3 pg (25.7-33.7); MEAN CELL VOLUME 97.6 fl (80-96); MEAN PLT VOLUME 6.2 fl (7.5-11.1); PLATELET COUNT 390 10^3/uL (134-434); RBC 3.07 M/mm3 (3.60-5.2); RDW 15.3 % (11.6-15.6); WHITE BLOOD COUNT 12.4 K/mm3 (4.0-10.0)
[2021-09-29 10:21] LABS: ALBUMIN 2.4 g/dl (3.4-5.0); MAGNESIUM 2.2 mg/dL (1.8-2.4)
[2021-09-29 10:24] LABS: BILIRUBIN,TOTAL 0.5 mg/dL (0.2-1); PHOSPHOROUS 4.6 mg/dL (2.5-4.9)
[2021-09-29 10:25] LABS: CREATININE 1.1 mg/dL (0.55-1.3)
[2021-09-29] MEDS ORDERED: ONDANSETRON 4 MG/2 ML VIAL IVPUSH PRN (12:00)
[2021-09-29] MEDS: PANTOPRAZOLE SODIUM 40 MG VIAL IVPUSH SCH (13:16)
[2021-09-29] MEDS: D5-1/2NS+10 MEQ KCL - 10 MEQ/1,000 ML INFUS.BAG IV SCH (13:16)
[2021-09-29] MEDS: ENOXAPARIN NA (PORCINE) 40 MG/0.4 ML DISP.SYRIN SQ SCH (13:17)
[2021-09-29] MEDS: amLODIPine BESYLATE 5 MG TABLET (FP) PO SCH (13:17)
[2021-09-29] MEDS: MINERAL OIL/PET HY-PHL TOPICAL OINTMENT 454 GM JAR TP SCH (16:37)
[2021-09-29] MEDS: COLLAGENASE CLOSTRIDIUM HIST. 30 GRAMS TUBE TP SCH (16:37)
[2021-09-29 17:48] VITALS: BMI 27.3
[2021-09-29] MEDS: ACETAMINOPHEN 325 MG TABLET (FP) PO PRN (18:21)
[2021-09-29] MEDS: ALBUTEROL SO4 HFA INHALER IH SCH ×2 (18:21→23:18)
[2021-09-29] MEDS: predniSONE 10 MG TABLET (UD) PO SCH (18:22)
[2021-09-29] MEDS: guaiFENesin 600 MG TABLET.ER (FP) PO SCH (22:17)
[2021-09-30] MEDS: D5-1/2NS+10 MEQ KCL - 10 MEQ/1,000 ML INFUS.BAG IV SCH ×2 (01:44→11:39)
[2021-09-30] MEDS: AZTREONAM 2 GM in DEXTROSE 5%-WATER 100 ML IVPB SCH (01:45)
[2021-09-30] MEDS: ALBUTEROL SO4 HFA INHALER IH SCH ×3 (05:31→17:46)
[2021-09-30 09:01] LABS: HEMATOCRIT 30.7 % (32.4-45.2); HEMOGLOBIN 9.9 GM/dL (10.7-15.3); MCH 31.8 pg (25.7-33.7); MCHC 32.3 g/dl (32.0-36.0); MEAN CELL VOLUME 98.6 fl (80-96); MEAN PLT VOLUME 6.7 fl (7.5-11.1); PLATELET COUNT 379 10^3/uL (134-434); RBC 3.11 M/mm3 (3.60-5.2); RDW 15.2 % (11.6-15.6); WHITE BLOOD COUNT 9.7 K/mm3 (4.0-10.0)
[2021-09-30] MEDS: TAMSULOSIN HCL 0.4 MG CAP PO SCH (09:12)
[2021-09-30] MEDS: PANTOPRAZOLE SODIUM 40 MG VIAL IVPUSH SCH (09:12)
[2021-09-30] MEDS: ZINC SULFATE 220 MG CAPSULE (FP) PO SCH (09:12)
[2021-09-30] MEDS: amLODIPine BESYLATE 5 MG TABLET (FP) PO SCH (09:12)
[2021-09-30] MEDS: ASCORBIC ACID 500 MG TABLET (FP) PO SCH (09:12)
[2021-09-30] MEDS: guaiFENesin 600 MG TABLET.ER (FP) PO SCH ×2 (09:12→21:29)
[2021-09-30] MEDS: ENOXAPARIN NA (PORCINE) 40 MG/0.4 ML DISP.SYRIN SQ SCH (09:12)
[2021-09-30] MEDS: predniSONE 10 MG TABLET (UD) PO SCH (09:22)
[2021-09-30 09:26] LABS: CALCIUM 8.6 mg/dL (8.5-10.1)
[2021-09-30 09:27] LABS: BLOOD UREA NITROGEN 22.1 mg/dL (7-18)
[2021-09-30 09:30] LABS: CREATININE 1.4 mg/dL (0.55-1.3)
[2021-09-30] MEDS: COLLAGENASE CLOSTRIDIUM HIST. 30 GRAMS TUBE TP SCH (09:35)
[2021-09-30] MEDS: MINERAL OIL/PET HY-PHL TOPICAL OINTMENT 454 GM JAR TP SCH (09:35)
[2021-09-30 10:00] LABS: ANISOCYTOSIS 0; HELMET CELLS 0; HOWELL-JOLLY BODIES 0; MACROCYTOSIS 0; OVALOCYTE 0; PLATELET ESTIMATE NORMAL; ROULEAU 0; SICKELED CELLS 0; TARGET CELLS 0; TEAR DROP CELLS 0; TOXIC GRANULATION 0
[2021-09-30] MEDS ORDERED: predniSONE 5 MG TABLET (UD) PO SCH (10:00)
[2021-09-30] MEDS ORDERED: VANCOMYCIN 1 GRAM (PRE-DOCKED) 1,000 MG/250 ML BAG IVPB ONE (10:00)
[2021-09-30] MEDS ORDERED: AZTREONAM 1 GM VIAL (RESTRICTED TO ID) ONE ×2 (14:52→17:36)
[2021-09-30] MEDS ORDERED: DEXTROSE 5%-WATER - 50 ML IVPB ONE ×2 (14:53→17:37)
[2021-09-30] MEDS: AZTREONAM 1 GM in DEXTROSE 5%-WATER - 50 ML IVPB SCH ×2 (14:58→17:38)
[2021-09-30] MEDS ORDERED: SODIUM CHLORIDE 0.45% 1,000 ML IV SCH (16:15)
[2021-09-30] MEDS ORDERED: SODIUM ZIRCONIUM CYCLOSILICATE (LOKELMA) 5 GM PACKET PO SCH (16:15)
[2021-10-01] MEDS: ALBUTEROL SO4 HFA INHALER IH SCH ×4 (01:00→17:31)
[2021-10-01] MEDS ORDERED: AZTREONAM 1 GM VIAL (RESTRICTED TO ID) ONE ×2 (02:09→09:01)
[2021-10-01] MEDS ORDERED: DEXTROSE 5%-WATER - 50 ML IVPB ONE ×2 (02:09→09:02)
[2021-10-01] MEDS: AZTREONAM 1 GM in DEXTROSE 5%-WATER - 50 ML IVPB SCH ×2 (02:12→09:08)
[2021-10-01] MEDS: TAMSULOSIN HCL 0.4 MG CAP PO SCH (09:07)
[2021-10-01] MEDS: ZINC SULFATE 220 MG CAPSULE (FP) PO SCH (09:07)
[2021-10-01] MEDS: ENOXAPARIN NA (PORCINE) 40 MG/0.4 ML DISP.SYRIN SQ SCH (09:07)
[2021-10-01] MEDS: amLODIPine BESYLATE 5 MG TABLET (FP) PO SCH (09:07)
[2021-10-01] MEDS: ASCORBIC ACID 500 MG TABLET (FP) PO SCH (09:07)
[2021-10-01] MEDS: MINERAL OIL/PET HY-PHL TOPICAL OINTMENT 454 GM JAR TP SCH (09:08)
[2021-10-01] MEDS: predniSONE 10 MG TABLET (UD) PO SCH (09:08)
[2021-10-01] MEDS: COLLAGENASE CLOSTRIDIUM HIST. 30 GRAMS TUBE TP SCH (09:09)
[2021-10-01 09:12] LABS: BASO % 0.3 % (0-2.0); EOS % 0.4 % (0-4.5); HEMATOCRIT 31.9 % (32.4-45.2); HEMOGLOBIN 10.5 GM/dL (10.7-15.3); LYMPH % 15.2 % (8-40); MCH 31.9 pg (25.7-33.7); MCHC 32.9 g/dl (32.0-36.0); MEAN CELL VOLUME 96.9 fl (80-96); MEAN PLT VOLUME 6.4 fl (7.5-11.1); MONO % 4.1 % (3.8-10.2); PLATELET COUNT 453 10^3/uL (134-434); RBC 3.29 M/mm3 (3.60-5.2); RDW 15.2 % (11.6-15.6); WHITE BLOOD COUNT 10.7 K/mm3 (4.0-10.0)
[2021-10-01] MEDS: guaiFENesin 600 MG TABLET.ER (FP) PO SCH (09:16)
[2021-10-01 10:05] LABS: CALCIUM 8.9 mg/dL (8.5-10.1)
[2021-10-01 10:06] LABS: ALBUMIN 2.5 g/dl (3.4-5.0)
[2021-10-01 10:09] LABS: CREATININE 1.2 mg/dL (0.55-1.3)
[2021-10-01 10:10] LABS: BILIRUBIN,TOTAL 0.4 mg/dL (0.2-1); TOT PROT 7.5 g/dl (6.4-8.2)
[2021-10-01] MEDS: PANTOPRAZOLE SODIUM 40 MG VIAL IVPUSH SCH (11:37)
[2021-10-01] MEDS ORDERED: CEFAZOLIN 2 GM in SODIUM CHLORIDE 100 ML IVPB SCH (12:15)
[2021-10-01] MEDS ORDERED: CEFAZOLIN 2 GM in DEXTROSE 5%-WATER - 100 ML IVPB SCH ×2 (12:46→14:15)
[2021-10-01] MEDS ORDERED: CEFAZOLIN 2 GM in DEXTROSE 5%-WATER - 100 ML IVPB ONE (13:00)
[2021-10-01] MEDS ORDERED: SODIUM CHLORIDE 0.45% 1,000 ML IV SCH ×2 (16:15)
[2021-10-01] MEDS: AMINO ACIDS/PROTEIN HYDROLYS 30 ML LIQUID.PKT PO SCH (17:28)
[2021-10-01] MEDS: CEFAZOLIN 2 GM in DEXTROSE 5%-WATER - 100 ML IVPB SCH (17:29)
[2021-10-02] MEDS: ALBUTEROL SO4 HFA INHALER IH SCH ×4 (00:30→17:15)
[2021-10-02] MEDS: CEFAZOLIN 2 GM in DEXTROSE 5%-WATER - 100 ML IVPB SCH ×3 (02:43→17:15)
[2021-10-02] MEDS: AMINO ACIDS/PROTEIN HYDROLYS 30 ML LIQUID.PKT PO SCH ×2 (08:18→17:14)
[2021-10-02] MEDS: TAMSULOSIN HCL 0.4 MG CAP PO SCH (08:18)
[2021-10-02 09:19] LABS: CALCIUM 8.7 mg/dL (8.5-10.1)
[2021-10-02 09:20] LABS: BLOOD UREA NITROGEN 30.7 mg/dL (7-18)
[2021-10-02 09:22] LABS: CREATININE 1.1 mg/dL (0.55-1.3)
[2021-10-02] MEDS: PANTOPRAZOLE SODIUM 40 MG VIAL IVPUSH SCH (09:37)
[2021-10-02] MEDS: amLODIPine BESYLATE 5 MG TABLET (FP) PO SCH (09:38)
[2021-10-02] MEDS: FOLIC ACID 1 MG TABLET (FP) PO SCH (09:38)
[2021-10-02] MEDS: ASCORBIC ACID 500 MG TABLET (FP) PO SCH (09:38)
[2021-10-02] MEDS: predniSONE 20 MG TABLET (UD) PO SCH (09:38)
[2021-10-02] MEDS: ZINC SULFATE 220 MG CAPSULE (FP) PO SCH (09:38)
[2021-10-02] MEDS: METHOTREXATE 2.5 MG TABLET PO SCH (09:38)
[2021-10-02] MEDS: COLLAGENASE CLOSTRIDIUM HIST. 30 GRAMS TUBE TP SCH (09:39)
[2021-10-02] MEDS: MINERAL OIL/PET HY-PHL TOPICAL OINTMENT 454 GM JAR TP SCH (09:39)
[2021-10-02] MEDS: ENOXAPARIN NA (PORCINE) 40 MG/0.4 ML DISP.SYRIN SQ SCH (09:39)
[2021-10-03] MEDS: ALBUTEROL SO4 HFA INHALER IH SCH ×4 (00:39→17:24)
[2021-10-03] MEDS: CEFAZOLIN 2 GM in DEXTROSE 5%-WATER - 100 ML IVPB SCH ×3 (02:45→17:23)
[2021-10-03] MEDS: AMINO ACIDS/PROTEIN HYDROLYS 30 ML LIQUID.PKT PO SCH ×2 (08:51→16:59)
[2021-10-03] MEDS: TAMSULOSIN HCL 0.4 MG CAP PO SCH (08:51)
[2021-10-03 08:55] LABS: BASO % 0.9 % (0-2.0); HEMATOCRIT 32.2 % (32.4-45.2); HEMOGLOBIN 10.8 GM/dL (10.7-15.3); LYMPH % 27.7 % (8-40); MCH 32.5 pg (25.7-33.7); MCHC 33.6 g/dl (32.0-36.0); MEAN CELL VOLUME 96.8 fl (80-96); MONO % 5.2 % (3.8-10.2); NEUT % 65.2 % (42.8-82.8); PLATELET COUNT 445 10^3/uL (134-434); RBC 3.33 M/mm3 (3.60-5.2); RDW 15.1 % (11.6-15.6); WHITE BLOOD COUNT 8.5 K/mm3 (4.0-10.0)
[2021-10-03 09:09] LABS: EPI CELLS 30 /uL (0-25.1); HYALINE CASTS 2 /uL (0-3.1); URINE APPEARANCE CLEAR; URINE BACTERIA 31 /uL (0-1359); URINE BILIRUBIN NEGATIVE (NEGATIVE); URINE COLOR YELLOW; URINE GLUCOSE (UA) NEGATIVE (NEGATIVE); URINE KETONE NEGATIVE (NEGATIVE); URINE LEUK ESTERASE 3+ (NEGATIVE); URINE NITRITE NEGATIVE (NEGATIVE); URINE PROTEIN TRACE (NEGATIVE); URINE RBC 12 /uL (0-23.9); URINE UROBILINOGEN 0.2 mg/dL (0.2-1.0); URINE WBC 237 /uL (0-25.8)
[2021-10-03 09:12] LABS: CALCIUM 8.9 mg/dL (8.5-10.1)
[2021-10-03 09:13] LABS: BLOOD UREA NITROGEN 34.4 mg/dL (7-18)
[2021-10-03] MEDS: predniSONE 20 MG TABLET (UD) PO SCH (10:47)
[2021-10-03] MEDS: ENOXAPARIN NA (PORCINE) 40 MG/0.4 ML DISP.SYRIN SQ SCH (10:47)
[2021-10-03] MEDS: PANTOPRAZOLE SODIUM 40 MG VIAL IVPUSH SCH (10:47)
[2021-10-03] MEDS: amLODIPine BESYLATE 5 MG TABLET (FP) PO SCH (10:47)
[2021-10-03] MEDS: ZINC SULFATE 220 MG CAPSULE (FP) PO SCH (10:47)
[2021-10-03] MEDS: ASCORBIC ACID 500 MG TABLET (FP) PO SCH (10:47)
[2021-10-03] MEDS: MINERAL OIL/PET HY-PHL TOPICAL OINTMENT 454 GM JAR TP SCH (10:51)
[2021-10-03] MEDS: COLLAGENASE CLOSTRIDIUM HIST. 30 GRAMS TUBE TP SCH (10:51)
[2021-10-03] MEDS: FOLIC ACID 1 MG TABLET (FP) PO SCH (10:55)
[2021-10-04] MEDS: ALBUTEROL SO4 HFA INHALER IH SCH ×4 (00:14→18:15)
[2021-10-04] MEDS: CEFAZOLIN 2 GM in DEXTROSE 5%-WATER - 100 ML IVPB SCH ×3 (02:27→18:14)
[2021-10-04] MEDS: predniSONE 20 MG TABLET (UD) PO SCH (09:04)
[2021-10-04] MEDS: ASCORBIC ACID 500 MG TABLET (FP) PO SCH (09:04)
[2021-10-04] MEDS: AMINO ACIDS/PROTEIN HYDROLYS 30 ML LIQUID.PKT PO SCH ×2 (09:04→18:14)
[2021-10-04] MEDS: ZINC SULFATE 220 MG CAPSULE (FP) PO SCH (09:04)
[2021-10-04] MEDS: amLODIPine BESYLATE 5 MG TABLET (FP) PO SCH (09:04)
[2021-10-04] MEDS: ENOXAPARIN NA (PORCINE) 40 MG/0.4 ML DISP.SYRIN SQ SCH (09:04)
[2021-10-04] MEDS: FOLIC ACID 1 MG TABLET (FP) PO SCH (09:04)
[2021-10-04] MEDS: TAMSULOSIN HCL 0.4 MG CAP PO SCH (09:04)
[2021-10-04] MEDS: PANTOPRAZOLE SODIUM 40 MG VIAL IVPUSH SCH (09:04)
[2021-10-04] MEDS: COLLAGENASE CLOSTRIDIUM HIST. 30 GRAMS TUBE TP SCH (09:05)
[2021-10-04] MEDS: MINERAL OIL/PET HY-PHL TOPICAL OINTMENT 454 GM JAR TP SCH (09:05)
[2021-10-05] MEDS: ALBUTEROL SO4 HFA INHALER IH SCH ×5 (00:57→23:08)
[2021-10-05] MEDS: CEFAZOLIN 2 GM in DEXTROSE 5%-WATER - 100 ML IVPB SCH ×3 (02:25→17:57)
[2021-10-05] MEDS: AMINO ACIDS/PROTEIN HYDROLYS 30 ML LIQUID.PKT PO SCH ×2 (08:10→16:38)
[2021-10-05] MEDS: TAMSULOSIN HCL 0.4 MG CAP PO SCH (08:10)
[2021-10-05 08:59] LABS: BASO % 0.6 % (0-2.0); HEMATOCRIT 32.3 % (32.4-45.2); HEMOGLOBIN 10.9 GM/dL (10.7-15.3); LYMPH % 32.1 % (8-40); MCH 32.4 pg (25.7-33.7); MCHC 33.7 g/dl (32.0-36.0); MEAN CELL VOLUME 96.2 fl (80-96); MEAN PLT VOLUME 5.9 fl (7.5-11.1); MONO % 1.9 % (3.8-10.2); NEUT % 64.4 % (42.8-82.8); PLATELET COUNT 394 10^3/uL (134-434); RBC 3.35 M/mm3 (3.60-5.2); RDW 15.1 % (11.6-15.6)
[2021-10-05 09:18] LABS: CALCIUM 9.1 mg/dL (8.5-10.1)
[2021-10-05 09:19] LABS: BLOOD UREA NITROGEN 36.2 mg/dL (7-18)
[2021-10-05 09:22] LABS: CREATININE 0.9 mg/dL (0.55-1.3)
[2021-10-05] MEDS: FOLIC ACID 1 MG TABLET (FP) PO SCH (09:45)
[2021-10-05] MEDS: ASCORBIC ACID 500 MG TABLET (FP) PO SCH (09:45)
[2021-10-05] MEDS: ZINC SULFATE 220 MG CAPSULE (FP) PO SCH (09:45)
[2021-10-05] MEDS: amLODIPine BESYLATE 5 MG TABLET (FP) PO SCH (09:46)
[2021-10-05] MEDS: PANTOPRAZOLE SODIUM 40 MG VIAL IVPUSH SCH (09:46)
[2021-10-05] MEDS: ENOXAPARIN NA (PORCINE) 40 MG/0.4 ML DISP.SYRIN SQ SCH (09:46)
[2021-10-05] MEDS: MINERAL OIL/PET HY-PHL TOPICAL OINTMENT 454 GM JAR TP SCH (10:04)
[2021-10-05] MEDS: COLLAGENASE CLOSTRIDIUM HIST. 30 GRAMS TUBE TP SCH (10:04)
[2021-10-05] MEDS: predniSONE 10 MG TABLET (UD) PO SCH (10:36)
[2021-10-06] MEDS: CEFAZOLIN 2 GM in DEXTROSE 5%-WATER - 100 ML IVPB SCH ×3 (01:43→17:07)
[2021-10-06] MEDS: ALBUTEROL SO4 HFA INHALER IH SCH ×4 (05:37→23:37)
[2021-10-06] MEDS: AMINO ACIDS/PROTEIN HYDROLYS 30 ML LIQUID.PKT PO SCH ×2 (09:27→17:07)
[2021-10-06] MEDS: FOLIC ACID 1 MG TABLET (FP) PO SCH (09:27)
[2021-10-06] MEDS: ASCORBIC ACID 500 MG TABLET (FP) PO SCH (09:27)
[2021-10-06] MEDS: TAMSULOSIN HCL 0.4 MG CAP PO SCH (09:27)
[2021-10-06] MEDS: COLLAGENASE CLOSTRIDIUM HIST. 30 GRAMS TUBE TP SCH (09:28)
[2021-10-06] MEDS: MINERAL OIL/PET HY-PHL TOPICAL OINTMENT 454 GM JAR TP SCH (09:28)
[2021-10-06] MEDS: predniSONE 10 MG TABLET (UD) PO SCH (09:28)
[2021-10-06] MEDS: PANTOPRAZOLE SODIUM 40 MG VIAL IVPUSH SCH (09:28)
[2021-10-06] MEDS: ZINC SULFATE 220 MG CAPSULE (FP) PO SCH (09:28)
[2021-10-06] MEDS: amLODIPine BESYLATE 5 MG TABLET (FP) PO SCH (09:28)
[2021-10-07] MEDS: CEFAZOLIN 2 GM in DEXTROSE 5%-WATER - 100 ML IVPB SCH ×3 (01:29→17:51)
[2021-10-07] MEDS: ALBUTEROL SO4 HFA INHALER IH SCH ×3 (05:15→17:55)
[2021-10-07 09:39] LABS: BASO % 0.5 % (0-2.0); EOS % 1.5 % (0-4.5); HEMATOCRIT 32.9 % (32.4-45.2); LYMPH % 27.9 % (8-40); MCH 32.3 pg (25.7-33.7); MCHC 33.4 g/dl (32.0-36.0); MEAN CELL VOLUME 96.7 fl (80-96); MEAN PLT VOLUME 6.1 fl (7.5-11.1); MONO % 3.6 % (3.8-10.2); NEUT % 66.5 % (42.8-82.8); PLATELET COUNT 408 10^3/uL (134-434); RDW 15.2 % (11.6-15.6); WHITE BLOOD COUNT 10.8 K/mm3 (4.0-10.0)
[2021-10-07 10:08] LABS: BLOOD UREA NITROGEN 37.5 mg/dL (7-18)
[2021-10-07] MEDS: PANTOPRAZOLE 20 MG TABLET PO SCH (10:29)
[2021-10-07] MEDS: FOLIC ACID 1 MG TABLET (FP) PO SCH (10:29)
[2021-10-07] MEDS: ZINC SULFATE 220 MG CAPSULE (FP) PO SCH (10:29)
[2021-10-07] MEDS: ASCORBIC ACID 500 MG TABLET (FP) PO SCH (10:29)
[2021-10-07] MEDS: AMINO ACIDS/PROTEIN HYDROLYS 30 ML LIQUID.PKT PO SCH ×2 (10:30→17:51)
[2021-10-07] MEDS: predniSONE 10 MG TABLET (UD) PO SCH (10:30)
[2021-10-07] MEDS: TAMSULOSIN HCL 0.4 MG CAP PO SCH (10:30)
[2021-10-07] MEDS: MINERAL OIL/PET HY-PHL TOPICAL OINTMENT 454 GM JAR TP SCH (10:31)
[2021-10-07] MEDS: amLODIPine BESYLATE 5 MG TABLET (FP) PO SCH (10:31)
[2021-10-07] MEDS: COLLAGENASE CLOSTRIDIUM HIST. 30 GRAMS TUBE TP SCH (10:31)
[2021-10-08] MEDS: ALBUTEROL SO4 HFA INHALER IH SCH ×5 (01:03→23:35)
[2021-10-08] MEDS: CEFAZOLIN 2 GM in DEXTROSE 5%-WATER - 100 ML IVPB SCH ×3 (01:03→18:14)
[2021-10-08] MEDS: AMINO ACIDS/PROTEIN HYDROLYS 30 ML LIQUID.PKT PO SCH ×2 (10:56→18:05)
[2021-10-08] MEDS: PANTOPRAZOLE 20 MG TABLET PO SCH (10:56)
[2021-10-08] MEDS: FOLIC ACID 1 MG TABLET (FP) PO SCH (10:56)
[2021-10-08] MEDS: ZINC SULFATE 220 MG CAPSULE (FP) PO SCH (10:57)
[2021-10-08] MEDS: TAMSULOSIN HCL 0.4 MG CAP PO SCH (10:57)
[2021-10-08] MEDS: predniSONE 5 MG TABLET (UD) PO SCH (10:57)
[2021-10-08] MEDS: amLODIPine BESYLATE 5 MG TABLET (FP) PO SCH (10:57)
[2021-10-08] MEDS: ASCORBIC ACID 500 MG TABLET (FP) PO SCH (10:58)
[2021-10-08] MEDS: MINERAL OIL/PET HY-PHL TOPICAL OINTMENT 454 GM JAR TP SCH (11:00)
[2021-10-08] MEDS: ENOXAPARIN NA (PORCINE) 40 MG/0.4 ML DISP.SYRIN SQ SCH (16:32)
[2021-10-08] MEDS: COLLAGENASE CLOSTRIDIUM HIST. 30 GRAMS TUBE TP SCH (16:33)
[2021-10-09] MEDS: CEFAZOLIN 2 GM in DEXTROSE 5%-WATER - 100 ML IVPB SCH ×3 (02:22→18:05)
[2021-10-09] MEDS: ALBUTEROL SO4 HFA INHALER IH SCH ×3 (06:02→18:05)
[2021-10-09 08:10] LABS: SARS-CoV-2 NAA Not Detected (Not Detected)
[2021-10-09 09:57] LABS: CALCIUM 9.1 mg/dL (8.5-10.1)
[2021-10-09 09:58] LABS: BLOOD UREA NITROGEN 36.9 mg/dL (7-18)
[2021-10-09 10:01] LABS: CREATININE 0.9 mg/dL (0.55-1.3)
[2021-10-09] MEDS: METHOTREXATE 2.5 MG TABLET PO SCH (10:47)
[2021-10-09] MEDS: ENOXAPARIN NA (PORCINE) 40 MG/0.4 ML DISP.SYRIN SQ SCH (10:54)
[2021-10-09] MEDS: AMINO ACIDS/PROTEIN HYDROLYS 30 ML LIQUID.PKT PO SCH ×2 (10:54→18:05)
[2021-10-09] MEDS: amLODIPine BESYLATE 5 MG TABLET (FP) PO SCH (10:55)
[2021-10-09] MEDS: PANTOPRAZOLE 20 MG TABLET PO SCH (10:56)
[2021-10-09] MEDS: TAMSULOSIN HCL 0.4 MG CAP PO SCH (10:56)
[2021-10-09] MEDS: predniSONE 5 MG TABLET (UD) PO SCH (10:57)
[2021-10-09] MEDS: ZINC SULFATE 220 MG CAPSULE (FP) PO SCH (10:58)
[2021-10-09] MEDS: FOLIC ACID 1 MG TABLET (FP) PO SCH (10:58)
[2021-10-09] MEDS: ASCORBIC ACID 500 MG TABLET (FP) PO SCH (10:58)
[2021-10-09] MEDS: COLLAGENASE CLOSTRIDIUM HIST. 30 GRAMS TUBE TP SCH (12:47)
[2021-10-09] MEDS: MINERAL OIL/PET HY-PHL TOPICAL OINTMENT 454 GM JAR TP SCH (12:47)
[2021-10-10] MEDS: ALBUTEROL SO4 HFA INHALER IH SCH ×2 (00:40→06:02)
[2021-10-10] MEDS ORDERED: CEFAZOLIN 2 GM in SODIUM CHLORIDE 100 ML IVPB SCH (02:01)
[2021-10-10] MEDS: CEFAZOLIN 2 GM in DEXTROSE 5%-WATER - 100 ML IVPB SCH (02:10)
[2021-10-10] MEDS: CEFAZOLIN 2 GM in SODIUM CHLORIDE 100 ML IVPB SCH ×2 (02:27→10:33)
[2021-10-10 07:44] VITALS: BP 116/74; PULSE 73; TEMP 98.2
[2021-10-10] MEDS: ACETAMINOPHEN 325 MG TABLET (FP) PO PRN (08:25)
[2021-10-10] MEDS: AMINO ACIDS/PROTEIN HYDROLYS 30 ML LIQUID.PKT PO SCH (08:28)
[2021-10-10] MEDS: TAMSULOSIN HCL 0.4 MG CAP PO SCH (10:33)
[2021-10-10] MEDS: amLODIPine BESYLATE 5 MG TABLET (FP) PO SCH (10:34)
[2021-10-10] MEDS: MINERAL OIL/PET HY-PHL TOPICAL OINTMENT 454 GM JAR TP SCH (10:34)
[2021-10-10] MEDS: FOLIC ACID 1 MG TABLET (FP) PO SCH (10:34)
[2021-10-10] MEDS: ZINC SULFATE 220 MG CAPSULE (FP) PO SCH (10:34)
[2021-10-10] MEDS: predniSONE 5 MG TABLET (UD) PO SCH (10:34)
[2021-10-10] MEDS: ASCORBIC ACID 500 MG TABLET (FP) PO SCH (10:34)
[2021-10-10] MEDS: ENOXAPARIN NA (PORCINE) 40 MG/0.4 ML DISP.SYRIN SQ SCH (10:34)
[2021-10-10] MEDS: PANTOPRAZOLE 20 MG TABLET PO SCH (10:34)
[2021-10-10] MEDS: COLLAGENASE CLOSTRIDIUM HIST. 30 GRAMS TUBE TP SCH (10:35)
== END 2021-10-10 14:34 | DRG 698 ==
LOC: JER 21:50 → JERBED 09-29 03:28 → J8W 09-29 06:39
PROVIDERS: ADMIT Internal Medicine; ATTEND Internal Medicine
PROC: 0T9030Z Drainage of Right Kidney with Drainage Device, Percutaneous Approach (ICD-10-PCS; principal; 2021-09-30)
PROC: 05HY33Z Insertion of Infusion Device into Upper Vein, Percutaneous Approach (ICD-10-PCS; 2021-10-09)
PROC: 05HB33Z Insertion of Infusion Device into Right Basilic Vein, Percutaneous Approach (ICD-10-PCS; 2021-10-09)
DX: T83.512A Infection and inflammatory reaction due to nephrostomy catheter, initial encounter (principal); L89.153 Pressure ulcer of sacral region, stage 3; N13.6 Pyonephrosis; R78.81 Bacteremia; Z16.12 Extended spectrum beta lactamase (ESBL) resistance; N39.0 Urinary tract infection, site not specified; T83.89XA Other specified complication of genitourinary prosthetic devices, implants and grafts, initial encounter; M06.9 Rheumatoid arthritis, unspecified; B95.61 Methicillin susceptible Staphylococcus aureus infection as the cause of diseases classified elsewhere; E87.5 Hyperkalemia; I10 Essential (primary) hypertension; E78.5 Hyperlipidemia, unspecified; Y83.9 Surgical procedure, unspecified as the cause of abnormal reaction of the patient, or of later complication, without mention of misadventure at the time of the procedure
CPT/HCPCS: 36415; 36569; 50432; 71045-TC-FY; 73562-TC-LT-FY; 73562-TC-RT-FY; 74177-TC; 77001-TC-FY; 80048; 80053; 81003; 83690; 83735; 84100; 85025; 85027; 85610; 85730; 86140; 86850; 86900; 86901; 87040; 87086; 87102; 87116; 87186; 87206; 87210; 93005; 93010; 93306-TC; 99285-25; C1751; C9803; J8610; Q9967; U0003; U0005

== ENCOUNTER 2021-11-16 10:33 | Inpatient (IN) | payer OTHER ==
[2021-11-16 14:05] LABS: HEMATOCRIT 35.2 % (32.4-45.2); HEMOGLOBIN 11.7 GM/dL (10.7-15.3); MCH 34.4 pg (25.7-33.7); MCHC 33.2 g/dl (32.0-36.0); MEAN CELL VOLUME 103.7 fl (80-96); MEAN PLT VOLUME 6.8 fl (7.5-11.1); PLATELET COUNT 243 10^3/uL (134-434); RDW 17.9 % (11.6-15.6); WHITE BLOOD COUNT 9.6 K/mm3 (4.0-10.0)
[2021-11-16 14:11] LABS: INR 1.12 (0.83-1.09); PROTHROMBIN TIME (PATIENT) 12.9 SEC (9.7-13.0)
[2021-11-16 14:14] LABS: ACTIVATED PTT 32.3 SECONDS (25.2-36.5)
[2021-11-16 14:24] LABS: BLOOD UREA NITROGEN 23.2 mg/dL (7-18); CALCIUM 9.2 mg/dL (8.5-10.1)
[2021-11-16 14:25] LABS: ALBUMIN 3.1 g/dl (3.4-5.0)
[2021-11-16 14:28] LABS: CREATININE 1.1 mg/dL (0.55-1.3)
[2021-11-16 14:29] LABS: BILIRUBIN,TOTAL 0.5 mg/dL (0.2-1); TOT PROT 6.6 g/dl (6.4-8.2)
[2021-11-16 14:50] LABS: EPI CELLS 7 /uL (0-25.1); HYALINE CASTS 2 /uL (0-3.1); PH,URINE 5.5 (5.0-8.0); URINE APPEARANCE CLEAR; URINE BACTERIA >9,000 /uL (0-1359); URINE BILIRUBIN NEGATIVE (NEGATIVE); URINE COLOR YELLOW; URINE GLUCOSE (UA) NEGATIVE (NEGATIVE); URINE KETONE TRACE (NEGATIVE); URINE LEUK ESTERASE NEGATIVE (NEGATIVE); URINE NITRITE POSITIVE (NEGATIVE); URINE PROTEIN 1+ (NEGATIVE); URINE RBC 48 /uL (0-23.9); URINE UROBILINOGEN 0.2 mg/dL (0.2-1.0); URINE WBC 49 /uL (0-25.8)
[2021-11-16 14:55] LABS: ANISOCYTOSIS 1+; MACROCYTOSIS 1+
[2021-11-16] MEDS ORDERED: ERTAPENEM SODIUM 1 GM in SODIUM CHLORIDE 50 ML IVPB ONE (15:36)
[2021-11-16] MEDS ORDERED: ACETAMINOPHEN 1000 MG/100 ML BAG IVPB ONE (15:51)
[2021-11-16] MEDS ORDERED: VANCOMYCIN 1 GM in D5W (PRE-DOCKED) 1,000 MG/250 ML IVPB ONE (15:51)
[2021-11-16] MEDS ORDERED: ACETAMINOPHEN INJECTION 100 ML IVPB ONE (15:52)
[2021-11-16] MEDS ORDERED: ERTAPENEM SODIUM 1 GM VIAL ONE (15:55)
[2021-11-16] MEDS ORDERED: VANCOMYCIN 1 GRAM (PRE-DOCKED) 1,000 MG/250 ML BAG IVPB ONE (15:56)
[2021-11-16] MEDS ORDERED: morphine CARPU-JECT 2 MG/1 ML DISP.SYRIN IVPUSH ONE (20:08)
[2021-11-16] MEDS ORDERED: VANCOMYCIN 1 GM in D5W (PRE-DOCKED) 1,000 MG/250 ML IVPB SCH (21:15)
[2021-11-16] MEDS ORDERED: guaiFENesin 200 MG/10 ML 10 ML UNIT-DOSE CUPS ONE (23:03)
[2021-11-16] MEDS: guaiFENesin 600 MG TABLET.ER (FP) PO SCH (23:11)
[2021-11-16] MEDS: LIDOCAINE PATCH REMOVAL MC SCH (23:56)
[2021-11-17] MEDS: ACETAMINOPHEN 325 MG TABLET (FP) PO PRN ×2 (07:59→18:27)
[2021-11-17] MEDS: VANCOMYCIN 1 GM/200 ML PREMIX BAG IVPB SCH ×2 (08:01→18:26)
[2021-11-17 08:51] LABS: BASO % 0.2 % (0-2.0); EOS % 0.4 % (0-4.5); HEMATOCRIT 34.7 % (32.4-45.2); HEMOGLOBIN 11.6 GM/dL (10.7-15.3); LYMPH % 8.4 % (8-40); MCH 34.5 pg (25.7-33.7); MCHC 33.3 g/dl (32.0-36.0); MEAN CELL VOLUME 103.7 fl (80-96); MEAN PLT VOLUME 6.8 fl (7.5-11.1); MONO % 1.6 % (3.8-10.2); NEUT % 89.4 % (42.8-82.8); PLATELET COUNT 237 10^3/uL (134-434); RBC 3.35 M/mm3 (3.60-5.2); RDW 17.5 % (11.6-15.6); WHITE BLOOD COUNT 10.5 K/mm3 (4.0-10.0)
[2021-11-17] MEDS: TAMSULOSIN HCL 0.4 MG CAP PO SCH (08:55)
[2021-11-17 09:41] LABS: BLOOD UREA NITROGEN 22.8 mg/dL (7-18); CALCIUM 9.1 mg/dL (8.5-10.1); CREATININE 1.1 mg/dL (0.55-1.3)
[2021-11-17] MEDS: ERTAPENEM SODIUM 1 GM in SODIUM CHLORIDE 50 ML IVPB SCH (10:21)
[2021-11-17] MEDS: predniSONE 5 MG TABLET (UD) PO SCH (10:21)
[2021-11-17] MEDS: LIDOCAINE 5% TOPICAL PATCH TP SCH (10:22)
[2021-11-17] MEDS: FAMOTIDINE 20 MG TABLET PO SCH (10:22)
[2021-11-17] MEDS: guaiFENesin 600 MG TABLET.ER (FP) PO SCH ×2 (10:22→21:10)
[2021-11-17] MEDS: FLUTICASONE PROP 0.05% 16 GM NASAL SPRAY NS SCH (10:22)
[2021-11-17] MEDS: amLODIPine BESYLATE 5 MG TABLET (FP) PO SCH (10:22)
[2021-11-17] MEDS: MULTIVITAMINS (DAILY MVI) TABLET (FP) PO SCH (10:22)
[2021-11-17] MEDS: LIDOCAINE PATCH REMOVAL MC SCH (21:10)
[2021-11-18] MEDS: ACETAMINOPHEN 325 MG TABLET (FP) PO PRN ×2 (00:27→08:56)
[2021-11-18] MEDS ORDERED: VANCOMYCIN 1 GM/200 ML PREMIX BAG IVPB SCH (06:00)
[2021-11-18] MEDS: ERTAPENEM SODIUM 1 GM in SODIUM CHLORIDE 50 ML IVPB SCH (08:56)
[2021-11-18] MEDS: amLODIPine BESYLATE 5 MG TABLET (FP) PO SCH (09:11)
[2021-11-18] MEDS: FAMOTIDINE 20 MG TABLET PO SCH (09:11)
[2021-11-18] MEDS: FLUTICASONE PROP 0.05% 16 GM NASAL SPRAY NS SCH (09:12)
[2021-11-18] MEDS: TAMSULOSIN HCL 0.4 MG CAP PO SCH (09:12)
[2021-11-18] MEDS: LIDOCAINE 5% TOPICAL PATCH TP SCH (09:12)
[2021-11-18] MEDS: predniSONE 5 MG TABLET (UD) PO SCH (09:12)
[2021-11-18] MEDS: MULTIVITAMINS (DAILY MVI) TABLET (FP) PO SCH (09:12)
[2021-11-18] MEDS: guaiFENesin 600 MG TABLET.ER (FP) PO SCH ×2 (09:12→21:36)
[2021-11-18 10:31] LABS: BLOOD UREA NITROGEN 25.1 mg/dL (7-18); CALCIUM 8.7 mg/dL (8.5-10.1)
[2021-11-18 10:35] LABS: CREATININE 1.2 mg/dL (0.55-1.3)
[2021-11-18 10:36] LABS: BASO % 0.5 % (0-2.0); EOS % 0.8 % (0-4.5); HEMATOCRIT 35.3 % (32.4-45.2); HEMOGLOBIN 11.6 GM/dL (10.7-15.3); LYMPH % 8.1 % (8-40); MCH 34.3 pg (25.7-33.7); MCHC 32.8 g/dl (32.0-36.0); MEAN CELL VOLUME 104.4 fl (80-96); MEAN PLT VOLUME 7.4 fl (7.5-11.1); MONO % 1.4 % (3.8-10.2); NEUT % 89.2 % (42.8-82.8); PLATELET COUNT 260 10^3/uL (134-434); RBC 3.38 M/mm3 (3.60-5.2); RDW 17.3 % (11.6-15.6); WHITE BLOOD COUNT 8.9 K/mm3 (4.0-10.0)
[2021-11-18] MEDS ORDERED: ACETAMINOPHEN 1000 MG/100 ML BAG IVPB PRN (12:34)
[2021-11-18] MEDS: LIDOCAINE PATCH REMOVAL MC SCH (22:00)
[2021-11-19] MEDS: ERTAPENEM SODIUM 1 GM in SODIUM CHLORIDE 50 ML IVPB SCH (08:37)
[2021-11-19 08:55] LABS: BASO % 0.4 % (0-2.0); EOS % 1.2 % (0-4.5); HEMATOCRIT 31.1 % (32.4-45.2); HEMOGLOBIN 10.3 GM/dL (10.7-15.3); LYMPH % 15.4 % (8-40); MCH 34.4 pg (25.7-33.7); MCHC 33.1 g/dl (32.0-36.0); MEAN PLT VOLUME 7.2 fl (7.5-11.1); MONO % 5.7 % (3.8-10.2); NEUT % 77.3 % (42.8-82.8); PLATELET COUNT 208 10^3/uL (134-434); RBC 2.99 M/mm3 (3.60-5.2); RDW 17.8 % (11.6-15.6); WHITE BLOOD COUNT 6.7 K/mm3 (4.0-10.0)
[2021-11-19 09:26] LABS: CALCIUM 8.7 mg/dL (8.5-10.1)
[2021-11-19 09:30] LABS: CREATININE 1.2 mg/dL (0.55-1.3)
[2021-11-19] MEDS: LIDOCAINE 5% TOPICAL PATCH TP SCH (09:35)
[2021-11-19] MEDS: MULTIVITAMINS (DAILY MVI) TABLET (FP) PO SCH (09:35)
[2021-11-19] MEDS: TAMSULOSIN HCL 0.4 MG CAP PO SCH (09:35)
[2021-11-19] MEDS: amLODIPine BESYLATE 5 MG TABLET (FP) PO SCH (09:36)
[2021-11-19] MEDS: FAMOTIDINE 20 MG TABLET PO SCH (09:36)
[2021-11-19] MEDS: guaiFENesin 600 MG TABLET.ER (FP) PO SCH ×2 (09:36→21:06)
[2021-11-19] MEDS: ACETAMINOPHEN 325 MG TABLET (FP) PO PRN ×2 (09:36→21:06)
[2021-11-19] MEDS: predniSONE 5 MG TABLET (UD) PO SCH (09:36)
[2021-11-19] MEDS: FLUTICASONE PROP 0.05% 16 GM NASAL SPRAY NS SCH (12:42)
[2021-11-19] MEDS: LIDOCAINE PATCH REMOVAL MC SCH (21:09)
[2021-11-20] MEDS: ACETAMINOPHEN 325 MG TABLET (FP) PO PRN (08:35)
[2021-11-20] MEDS: TAMSULOSIN HCL 0.4 MG CAP PO SCH (08:35)
[2021-11-20] MEDS: ERTAPENEM SODIUM 1 GM in SODIUM CHLORIDE 50 ML IVPB SCH (09:18)
[2021-11-20] MEDS: LIDOCAINE 5% TOPICAL PATCH TP SCH (11:47)
[2021-11-20] MEDS: MULTIVITAMINS (DAILY MVI) TABLET (FP) PO SCH (11:47)
[2021-11-20] MEDS: amLODIPine BESYLATE 5 MG TABLET (FP) PO SCH (11:47)
[2021-11-20] MEDS: predniSONE 5 MG TABLET (UD) PO SCH (11:47)
[2021-11-20] MEDS: guaiFENesin 600 MG TABLET.ER (FP) PO SCH ×2 (11:47→22:35)
[2021-11-20] MEDS: FAMOTIDINE 20 MG TABLET PO SCH (11:47)
[2021-11-20] MEDS: FLUTICASONE PROP 0.05% 16 GM NASAL SPRAY NS SCH (11:51)
[2021-11-20] MEDS: POLYETHYLENE GLYCOL (HEALTHYLAX) 3350 17 GM PACKET PO SCH (13:10)
[2021-11-20] MEDS: METHOTREXATE 2.5 MG TABLET PO SCH (13:58)
[2021-11-20] MEDS: LIDOCAINE PATCH REMOVAL MC SCH (22:35)
[2021-11-21] MEDS: ACETAMINOPHEN 325 MG TABLET (FP) PO PRN (02:32)
[2021-11-21] MEDS: ERTAPENEM SODIUM 1 GM in SODIUM CHLORIDE 50 ML IVPB SCH (08:57)
[2021-11-21] MEDS: TAMSULOSIN HCL 0.4 MG CAP PO SCH (08:57)
[2021-11-21] MEDS: guaiFENesin 600 MG TABLET.ER (FP) PO SCH ×2 (09:06→22:13)
[2021-11-21] MEDS: LIDOCAINE 5% TOPICAL PATCH TP SCH (09:06)
[2021-11-21] MEDS: MULTIVITAMINS (DAILY MVI) TABLET (FP) PO SCH (09:06)
[2021-11-21] MEDS: POLYETHYLENE GLYCOL (HEALTHYLAX) 3350 17 GM PACKET PO SCH (09:06)
[2021-11-21 09:07] LABS: BASO % 0.5 % (0-2.0); EOS % 1.8 % (0-4.5); HEMOGLOBIN 11.3 GM/dL (10.7-15.3); LYMPH % 20.2 % (8-40); MCH 34.3 pg (25.7-33.7); MCHC 33.1 g/dl (32.0-36.0); MEAN CELL VOLUME 103.7 fl (80-96); MEAN PLT VOLUME 6.8 fl (7.5-11.1); NEUT % 72.5 % (42.8-82.8); PLATELET COUNT 262 10^3/uL (134-434); RBC 3.28 M/mm3 (3.60-5.2); RDW 17.4 % (11.6-15.6); WHITE BLOOD COUNT 6.6 K/mm3 (4.0-10.0)
[2021-11-21] MEDS: FLUTICASONE PROP 0.05% 16 GM NASAL SPRAY NS SCH (09:07)
[2021-11-21] MEDS: FAMOTIDINE 20 MG TABLET PO SCH (09:07)
[2021-11-21] MEDS: predniSONE 5 MG TABLET (UD) PO SCH (09:07)
[2021-11-21] MEDS: amLODIPine BESYLATE 5 MG TABLET (FP) PO SCH (09:07)
[2021-11-21 09:29] LABS: BLOOD UREA NITROGEN 26.6 mg/dL (7-18); CALCIUM 8.7 mg/dL (8.5-10.1)
[2021-11-21 09:33] LABS: CREATININE 1.1 mg/dL (0.55-1.3)
[2021-11-21] MEDS: LIDOCAINE PATCH REMOVAL MC SCH (22:13)
[2021-11-22] MEDS: ACETAMINOPHEN 325 MG TABLET (FP) PO PRN (06:27)
[2021-11-22] MEDS: ERTAPENEM SODIUM 1 GM in SODIUM CHLORIDE 50 ML IVPB SCH (07:43)
[2021-11-22] MEDS: TAMSULOSIN HCL 0.4 MG CAP PO SCH (07:43)
[2021-11-22] MEDS: amLODIPine BESYLATE 5 MG TABLET (FP) PO SCH (09:38)
[2021-11-22] MEDS: FAMOTIDINE 20 MG TABLET PO SCH (09:38)
[2021-11-22] MEDS: predniSONE 5 MG TABLET (UD) PO SCH (09:38)
[2021-11-22] MEDS: guaiFENesin 600 MG TABLET.ER (FP) PO SCH ×2 (09:38→22:11)
[2021-11-22] MEDS: MULTIVITAMINS (DAILY MVI) TABLET (FP) PO SCH (09:38)
[2021-11-22] MEDS: FLUTICASONE PROP 0.05% 16 GM NASAL SPRAY NS SCH (09:39)
[2021-11-22] MEDS: POLYETHYLENE GLYCOL (HEALTHYLAX) 3350 17 GM PACKET PO SCH (09:40)
[2021-11-22] MEDS: ENOXAPARIN NA (PORCINE) 40 MG/0.4 ML DISP.SYRIN SQ SCH ×2 (10:38→22:12)
[2021-11-22] MEDS: LIDOCAINE 5% TOPICAL PATCH TP SCH (10:38)
[2021-11-22] MEDS: LIDOCAINE PATCH REMOVAL MC SCH (22:12)
[2021-11-23] MEDS: ERTAPENEM SODIUM 1 GM in SODIUM CHLORIDE 50 ML IVPB SCH (08:29)
[2021-11-23] MEDS: TAMSULOSIN HCL 0.4 MG CAP PO SCH (08:29)
[2021-11-23] MEDS: POLYETHYLENE GLYCOL (HEALTHYLAX) 3350 17 GM PACKET PO SCH (09:22)
[2021-11-23] MEDS: LIDOCAINE 5% TOPICAL PATCH TP SCH (09:23)
[2021-11-23] MEDS: guaiFENesin 600 MG TABLET.ER (FP) PO SCH ×2 (09:23→21:43)
[2021-11-23] MEDS: predniSONE 5 MG TABLET (UD) PO SCH (09:23)
[2021-11-23] MEDS: amLODIPine BESYLATE 5 MG TABLET (FP) PO SCH (09:23)
[2021-11-23] MEDS: MULTIVITAMINS (DAILY MVI) TABLET (FP) PO SCH (09:23)
[2021-11-23] MEDS: ENOXAPARIN NA (PORCINE) 40 MG/0.4 ML DISP.SYRIN SQ SCH ×2 (09:23→21:44)
[2021-11-23] MEDS: FAMOTIDINE 20 MG TABLET PO SCH (09:23)
[2021-11-23] MEDS: FLUTICASONE PROP 0.05% 16 GM NASAL SPRAY NS SCH (09:29)
[2021-11-23 10:26] LABS: BASO % 0.6 % (0-2.0); EOS % 1.2 % (0-4.5); HEMATOCRIT 35.6 % (32.4-45.2); HEMOGLOBIN 11.9 GM/dL (10.7-15.3); LYMPH % 19.2 % (8-40); MCHC 33.3 g/dl (32.0-36.0); MEAN PLT VOLUME 6.5 fl (7.5-11.1); MONO % 1.4 % (3.8-10.2); NEUT % 77.6 % (42.8-82.8); PLATELET COUNT 289 10^3/uL (134-434); RBC 3.49 M/mm3 (3.60-5.2)
[2021-11-23] MEDS: LIDOCAINE PATCH REMOVAL MC SCH (21:43)
[2021-11-24] MEDS: TAMSULOSIN HCL 0.4 MG CAP PO SCH (08:14)
[2021-11-24] MEDS: ERTAPENEM SODIUM 1 GM in SODIUM CHLORIDE 50 ML IVPB SCH (08:14)
[2021-11-24] MEDS: predniSONE 5 MG TABLET (UD) PO SCH (09:21)
[2021-11-24] MEDS: LIDOCAINE 5% TOPICAL PATCH TP SCH (09:21)
[2021-11-24] MEDS: MULTIVITAMINS (DAILY MVI) TABLET (FP) PO SCH (09:21)
[2021-11-24] MEDS: amLODIPine BESYLATE 5 MG TABLET (FP) PO SCH (09:21)
[2021-11-24] MEDS: FAMOTIDINE 20 MG TABLET PO SCH (09:21)
[2021-11-24] MEDS: POLYETHYLENE GLYCOL (HEALTHYLAX) 3350 17 GM PACKET PO SCH (09:21)
[2021-11-24] MEDS: guaiFENesin 600 MG TABLET.ER (FP) PO SCH ×2 (09:21→22:39)
[2021-11-24] MEDS: FLUTICASONE PROP 0.05% 16 GM NASAL SPRAY NS SCH (09:22)
[2021-11-24] MEDS: ENOXAPARIN NA (PORCINE) 40 MG/0.4 ML DISP.SYRIN SQ SCH ×2 (09:22→22:39)
[2021-11-24 11:34] LABS: BASO % 0.6 % (0-2.0); HEMATOCRIT 33.2 % (32.4-45.2); HEMOGLOBIN 10.9 GM/dL (10.7-15.3); LYMPH % 21.6 % (8-40); MCH 34.1 pg (25.7-33.7); MEAN CELL VOLUME 103.2 fl (80-96); MEAN PLT VOLUME 6.9 fl (7.5-11.1); NEUT % 73.8 % (42.8-82.8); PLATELET COUNT 260 10^3/uL (134-434); RBC 3.21 M/mm3 (3.60-5.2); RDW 16.9 % (11.6-15.6); WHITE BLOOD COUNT 7.1 K/mm3 (4.0-10.0)
[2021-11-24 11:55] LABS: BLOOD UREA NITROGEN 28.3 mg/dL (7-18); CALCIUM 8.6 mg/dL (8.5-10.1)
[2021-11-24 11:58] LABS: CREATININE 0.9 mg/dL (0.55-1.3)
[2021-11-24 12:00] VITALS: BMI 25.6
[2021-11-24] MEDS: LIDOCAINE PATCH REMOVAL MC SCH (22:39)
[2021-11-25] MEDS: ERTAPENEM SODIUM 1 GM in SODIUM CHLORIDE 50 ML IVPB SCH (08:26)
[2021-11-25] MEDS: FAMOTIDINE 20 MG TABLET PO SCH (09:51)
[2021-11-25] MEDS: guaiFENesin 600 MG TABLET.ER (FP) PO SCH ×2 (09:51→22:11)
[2021-11-25] MEDS: MULTIVITAMINS (DAILY MVI) TABLET (FP) PO SCH (09:51)
[2021-11-25] MEDS: ENOXAPARIN NA (PORCINE) 40 MG/0.4 ML DISP.SYRIN SQ SCH ×2 (09:51→22:11)
[2021-11-25] MEDS: predniSONE 5 MG TABLET (UD) PO SCH (09:51)
[2021-11-25] MEDS: amLODIPine BESYLATE 5 MG TABLET (FP) PO SCH (09:51)
[2021-11-25] MEDS: TAMSULOSIN HCL 0.4 MG CAP PO SCH (09:51)
[2021-11-25] MEDS: FLUTICASONE PROP 0.05% 16 GM NASAL SPRAY NS SCH (09:53)
[2021-11-25] MEDS: LIDOCAINE 5% TOPICAL PATCH TP SCH (09:53)
[2021-11-25] MEDS: POLYETHYLENE GLYCOL (HEALTHYLAX) 3350 17 GM PACKET PO SCH (09:54)
[2021-11-25] MEDS: LIDOCAINE PATCH REMOVAL MC SCH (22:11)
[2021-11-26] MEDS: TAMSULOSIN HCL 0.4 MG CAP PO SCH (08:57)
[2021-11-26] MEDS: ERTAPENEM SODIUM 1 GM in SODIUM CHLORIDE 50 ML IVPB SCH (08:57)
[2021-11-26] MEDS: amLODIPine BESYLATE 5 MG TABLET (FP) PO SCH (09:00)
[2021-11-26] MEDS: FAMOTIDINE 20 MG TABLET PO SCH (09:00)
[2021-11-26] MEDS: MULTIVITAMINS (DAILY MVI) TABLET (FP) PO SCH (09:00)
[2021-11-26] MEDS: predniSONE 5 MG TABLET (UD) PO SCH (09:00)
[2021-11-26] MEDS: guaiFENesin 600 MG TABLET.ER (FP) PO SCH ×2 (09:01→21:24)
[2021-11-26] MEDS: POLYETHYLENE GLYCOL (HEALTHYLAX) 3350 17 GM PACKET PO SCH (09:01)
[2021-11-26] MEDS: ENOXAPARIN NA (PORCINE) 40 MG/0.4 ML DISP.SYRIN SQ SCH ×2 (09:01→21:25)
[2021-11-26] MEDS: LIDOCAINE 5% TOPICAL PATCH TP SCH (09:01)
[2021-11-26] MEDS: FLUTICASONE PROP 0.05% 16 GM NASAL SPRAY NS SCH (09:01)
[2021-11-26] MEDS: LIDOCAINE PATCH REMOVAL MC SCH (21:25)
[2021-11-27 06:08] LABS: SARS-CoV-2 NAA Not Detected (Not Detected)
[2021-11-27] MEDS: FAMOTIDINE 20 MG TABLET PO SCH (09:02)
[2021-11-27] MEDS: ENOXAPARIN NA (PORCINE) 40 MG/0.4 ML DISP.SYRIN SQ SCH (09:02)
[2021-11-27] MEDS: predniSONE 5 MG TABLET (UD) PO SCH (09:02)
[2021-11-27] MEDS: amLODIPine BESYLATE 5 MG TABLET (FP) PO SCH (09:02)
[2021-11-27] MEDS: TAMSULOSIN HCL 0.4 MG CAP PO SCH (09:02)
[2021-11-27] MEDS: LIDOCAINE 5% TOPICAL PATCH TP SCH (09:02)
[2021-11-27] MEDS: guaiFENesin 600 MG TABLET.ER (FP) PO SCH (09:02)
[2021-11-27] MEDS: MULTIVITAMINS (DAILY MVI) TABLET (FP) PO SCH (09:02)
[2021-11-27] MEDS: POLYETHYLENE GLYCOL (HEALTHYLAX) 3350 17 GM PACKET PO SCH (09:03)
[2021-11-27] MEDS: FLUTICASONE PROP 0.05% 16 GM NASAL SPRAY NS SCH (09:03)
[2021-11-27] MEDS: METHOTREXATE 2.5 MG TABLET PO SCH (09:03)
[2021-11-27 09:11] VITALS: BP 121/59; PULSE 75; TEMP 98.1
== END 2021-11-27 13:08 | DRG 699 ==
LOC: JER 10:33 → JERBED 18:15 → J6S 23:55
PROVIDERS: ADMIT Internal Medicine; ATTEND Internal Medicine
PROC: 0T9330Z Drainage of Right Kidney Pelvis with Drainage Device, Percutaneous Approach (ICD-10-PCS; principal; 2021-11-18)
PROC: BT01ZZZ Plain Radiography of Right Kidney (ICD-10-PCS; 2021-11-18)
DX: T83.022A Displacement of nephrostomy catheter, initial encounter (principal); T83.512A Infection and inflammatory reaction due to nephrostomy catheter, initial encounter; N10 Acute pyelonephritis; N17.9 Acute kidney failure, unspecified; N13.6 Pyonephrosis; Y82.8 Other medical devices associated with adverse incidents; M06.9 Rheumatoid arthritis, unspecified; I12.9 Hypertensive chronic kidney disease with stage 1 through stage 4 chronic kidney disease, or unspecified chronic kidney disease; N18.9 Chronic kidney disease, unspecified; Z96.653 Presence of artificial knee joint, bilateral; Z96.643 Presence of artificial hip joint, bilateral; Z88.0 Allergy status to penicillin
CPT/HCPCS: 36415; 50435; 74177-TC; 80048; 80053; 81003; 85025; 85610; 85730; 87040; 87070; 87075; 87086; 87102; 87116; 87186; 87205; 87206; 87210; 93005; 93010; 99285-25; C9803-CS; J8610; U0003; U0005

== ENCOUNTER 2021-12-02 04:53 | Day surgery (SDC) | payer OTHER ==
[2021-11-28 15:12] VITALS: BMI 25.1
[2021-12-02] MEDS ORDERED: PROPOFOL 20 ML ONE ×2 (15:48→17:14)
[2021-12-02] MEDS ORDERED: LIDOCAINE HCL/PF 2% SDV 5ML VIAL ONE (15:49)
[2021-12-02] MEDS ORDERED: DEXAMETHASONE SOD PHOSPHATE 4 MG/1 ML VIAL ONE (16:04)
[2021-12-02] MEDS ORDERED: KETOROLAC TROMETHAMINE 30 MG/1 ML VIAL ONE (16:11)
[2021-12-02] MEDS ORDERED: ONDANSETRON 4 MG/2 ML VIAL IVPUSH PRN (17:01)
[2021-12-02] MEDS ORDERED: PROMETHAZINE HCL 25 MG/1 ML VIAL IVPUSH PRN (17:01)
[2021-12-02] MEDS ORDERED: LACTATED RINGERS SOLUTION 1,000 ML IV SCH (17:15)
[2021-12-03 14:23] VITALS: BP 101/54; PULSE 62; TEMP 98.5
== END 2021-12-03 17:22 ==
LOC: JASUSAT 04:53 → JASU-SURG 04:53 → J4S 21:50 → JASUSAT 12-03 17:22
PROVIDERS: ATTEND Urology
PROC: 0TF68ZZ Fragmentation in Right Ureter, Via Natural or Artificial Opening Endoscopic (ICD-10-PCS; 2021-12-02)
PROC: BT14YZZ Fluoroscopy of Kidneys, Ureters and Bladder using Other Contrast (ICD-10-PCS; principal; 2021-12-02 13:30)
PROC: 0TF38ZZ Fragmentation in Right Kidney Pelvis, Via Natural or Artificial Opening Endoscopic (ICD-10-PCS; 2021-12-02 13:30)
DX: N13.2 Hydronephrosis with renal and ureteral calculous obstruction (principal); N13.5 Crossing vessel and stricture of ureter without hydronephrosis; Z53.8 Procedure and treatment not carried out for other reasons
CPT/HCPCS: 76000-TC-FY; 94760

== ENCOUNTER 2021-12-30 04:52 | Day surgery (SDC) | payer OTHER ==
[2021-12-26 15:03] VITALS: BMI 25.1
[2021-12-30] MEDS ORDERED: MIDAZOLAM HCL 2 MG/2 ML SINGLE DOSE VIAL ONE (12:09)
[2021-12-30] MEDS ORDERED: FENTANYL CITRATE/PF 50 MCG/ML VIAL ONE ×2 (12:10)
[2021-12-30] MEDS ORDERED: SODIUM CHLORIDE 500 ML IV SCH (12:15)
[2021-12-30] MEDS ORDERED: MIDAZOLAM HCL 2 MG/2 ML SINGLE DOSE VIAL IVPUSH ONE (12:35)
[2021-12-30] MEDS ORDERED: FENTANYL CITRATE/PF 50 MCG/ML VIAL IVPUSH ONE (12:35)
[2021-12-30 14:46] VITALS: BP 130/68; PULSE 68; TEMP 97.8
== END 2021-12-30 15:02 | disposition home or self-care (01) ==
LOC: JRADIR 04:52
PROVIDERS: ATTEND Urology
PROC: 0T9680Z Drainage of Right Ureter with Drainage Device, Via Natural or Artificial Opening Endoscopic (ICD-10-PCS; principal; 2021-12-30)
PROC: 0T25X0Z Change Drainage Device in Kidney, External Approach (ICD-10-PCS; 2021-12-30)
DX: N20.0 Calculus of kidney (principal)
CPT/HCPCS: 50435; 50693

== ENCOUNTER 2022-01-27 21:47 | Observation (INO) | payer OTHER ==
[2022-01-27] MEDS ORDERED: ACETAMINOPHEN 325 MG TABLET (FP) PO PRN (22:38)
[2022-01-27 23:48] LABS: BASO % 0.7 % (0-2.0); EOS % 1.3 % (0-4.5); HEMATOCRIT 33.2 % (32.4-45.2); HEMOGLOBIN 10.9 GM/dL (10.7-15.3); LYMPH % 25.2 % (8-40); MCH 34.1 pg (25.7-33.7); MEAN CELL VOLUME 103.4 fl (80-96); MONO % 6.4 % (3.8-10.2); NEUT % 66.4 % (42.8-82.8); PLATELET COUNT 198 10^3/uL (134-434); RBC 3.21 M/mm3 (3.60-5.2); RDW 13.7 % (11.6-15.6); WHITE BLOOD COUNT 7.6 K/mm3 (4.0-10.0)
[2022-01-28 00:11] LABS: MAGNESIUM 2.1 mg/dL (1.8-2.4)
[2022-01-28 00:13] LABS: CREATININE 0.8 mg/dL (0.55-1.3)
[2022-01-28 00:14] LABS: PHOSPHOROUS 3.2 mg/dL (2.5-4.9)
[2022-01-28 00:15] LABS: BILIRUBIN,TOTAL 0.2 mg/dL (0.2-1); TOT PROT 6.6 g/dl (6.4-8.2)
[2022-01-28] MEDS ORDERED: ACETAMINOPHEN 1000 MG/100 ML BAG IVPB ONE (00:46)
[2022-01-28] MEDS ORDERED: ACETAMINOPHEN INJECTION 100 ML IVPB ONE (01:20)
[2022-01-28 02:40] LABS: INR 1.03 (0.83-1.09); PROTHROMBIN TIME (PATIENT) 11.8 SEC (9.7-13.0)
[2022-01-28 02:43] LABS: ACTIVATED PTT 31.5 SECONDS (25.2-36.5)
[2022-01-28] MEDS ORDERED: ACETAMINOPHEN 325 MG TABLET (FP) PO PRN (05:41)
[2022-01-28] MEDS ORDERED: ALBUTEROL SO4 HFA INHALER IH PRN (05:47)
[2022-01-28] MEDS ORDERED: TAMSULOSIN HCL 0.4 MG CAP ONE (08:25)
[2022-01-28] MEDS: TAMSULOSIN HCL 0.4 MG CAP PO SCH (08:29)
[2022-01-28] MEDS ORDERED: POLYETHYLENE GLYCOL (HEALTHYLAX) 3350 17 GM PACKET ONE (09:53)
[2022-01-28] MEDS ORDERED: FOLIC ACID 1 MG TABLET (FP) ONE (09:53)
[2022-01-28] MEDS ORDERED: amLODIPine BESYLATE 5 MG TABLET (FP) ONE (09:54)
[2022-01-28] MEDS ORDERED: LIDOCAINE 5% TOPICAL PATCH ONE (09:54)
[2022-01-28] MEDS ORDERED: FAMOTIDINE 20 MG TABLET ONE (09:54)
[2022-01-28] MEDS: predniSONE 5 MG TABLET (UD) PO SCH (09:59)
[2022-01-28] MEDS: FAMOTIDINE 20 MG TABLET PO SCH (09:59)
[2022-01-28] MEDS: LIDOCAINE 5% TOPICAL PATCH TP SCH (09:59)
[2022-01-28] MEDS: amLODIPine BESYLATE 5 MG TABLET (FP) PO SCH (09:59)
[2022-01-28] MEDS: FOLIC ACID 1 MG TABLET (FP) PO SCH (09:59)
[2022-01-28] MEDS: POLYETHYLENE GLYCOL (HEALTHYLAX) 3350 17 GM PACKET PO SCH (10:00)
[2022-01-28] MEDS: ZINC OXIDE 20% TOPICAL OINTMENT 30 GM TUBE TP SCH (10:00)
[2022-01-28] MEDS ORDERED: LIDOCAINE PATCH REMOVAL MC SCH (22:00)
[2022-01-28] MEDS ORDERED: morphine SULFATE 4 MG/ML VIAL ONE (23:01)
[2022-01-29] MEDS ORDERED: FAMOTIDINE 20 MG TABLET ONE (01:09)
[2022-01-29] MEDS: FAMOTIDINE 20 MG TABLET PO SCH ×2 (01:23→11:43)
[2022-01-29] MEDS: ZINC OXIDE 20% TOPICAL OINTMENT 30 GM TUBE TP SCH ×2 (01:23→16:57)
[2022-01-29] MEDS ORDERED: ONDANSETRON 4 MG/2 ML VIAL ONE (02:14)
[2022-01-29 06:53] LABS: BASO % 0.4 % (0-2.0); EOS % 0.3 % (0-4.5); HEMATOCRIT 30.6 % (32.4-45.2); HEMOGLOBIN 10.4 GM/dL (10.7-15.3); LYMPH % 9.9 % (8-40); MCH 35.3 pg (25.7-33.7); MEAN PLT VOLUME 7.2 fl (7.5-11.1); MONO % 7.9 % (3.8-10.2); NEUT % 81.5 % (42.8-82.8); PLATELET COUNT 163 10^3/uL (134-434); RBC 2.94 M/mm3 (3.60-5.2); RDW 13.8 % (11.6-15.6); WHITE BLOOD COUNT 10.4 K/mm3 (4.0-10.0)
[2022-01-29 07:18] LABS: CALCIUM 8.3 mg/dL (8.5-10.1)
[2022-01-29 07:22] LABS: CREATININE 0.9 mg/dL (0.55-1.3)
[2022-01-29] MEDS ORDERED: METHOTREXATE 2.5 MG TABLET PO SCH (10:00)
[2022-01-29 11:36] VITALS: BMI 26.3
[2022-01-29] MEDS: amLODIPine BESYLATE 5 MG TABLET (FP) PO SCH (11:42)
[2022-01-29] MEDS: FOLIC ACID 1 MG TABLET (FP) PO SCH (11:42)
[2022-01-29] MEDS: TAMSULOSIN HCL 0.4 MG CAP PO SCH (11:43)
[2022-01-29] MEDS: predniSONE 5 MG TABLET (UD) PO SCH (11:43)
[2022-01-29] MEDS: POLYETHYLENE GLYCOL (HEALTHYLAX) 3350 17 GM PACKET PO SCH (11:44)
[2022-01-29] MEDS: LIDOCAINE 5% TOPICAL PATCH TP SCH (11:47)
[2022-01-29 16:08] LABS: BASO % 0.5 % (0-2.0); EOS % 0.4 % (0-4.5); HEMATOCRIT 28.7 % (32.4-45.2); HEMOGLOBIN 9.7 GM/dL (10.7-15.3); LYMPH % 4.9 % (8-40); MCH 35.1 pg (25.7-33.7); MCHC 33.8 g/dl (32.0-36.0); MEAN CELL VOLUME 103.8 fl (80-96); MEAN PLT VOLUME 7.2 fl (7.5-11.1); MONO % 7.2 % (3.8-10.2); PLATELET COUNT 156 10^3/uL (134-434); RBC 2.77 M/mm3 (3.60-5.2); RDW 13.9 % (11.6-15.6); WHITE BLOOD COUNT 11.3 K/mm3 (4.0-10.0)
[2022-01-29 17:33] VITALS: BP 104/57; PULSE 73; TEMP 99.9
== END 2022-01-29 19:09 ==
LOC: JER 21:47 → JERBED 01-28 02:39 → J8W 01-29 07:58
PROVIDERS: ADMIT Hospitalist; ATTEND Family Medicine
PROC: 3E033NZ Introduction of Analgesics, Hypnotics, Sedatives into Peripheral Vein, Percutaneous Approach (ICD-10-PCS; principal; 2022-01-28)
PROC: 0T25X0Z Change Drainage Device in Kidney, External Approach (ICD-10-PCS; 2022-01-28)
DX: T83.022A Displacement of nephrostomy catheter, initial encounter (principal); E78.5 Hyperlipidemia, unspecified; N13.9 Obstructive and reflux uropathy, unspecified; E11.22 Type 2 diabetes mellitus with diabetic chronic kidney disease; R31.9 Hematuria, unspecified; I12.9 Hypertensive chronic kidney disease with stage 1 through stage 4 chronic kidney disease, or unspecified chronic kidney disease; N18.9 Chronic kidney disease, unspecified; M06.9 Rheumatoid arthritis, unspecified; H91.8X3 Other specified hearing loss, bilateral; Z86.14 Personal history of Methicillin resistant Staphylococcus aureus infection; Z96.653 Presence of artificial knee joint, bilateral; Z29.8 Encounter for other specified prophylactic measures; Z86.19 Personal history of other infectious and parasitic diseases; Z86.79 Personal history of other diseases of the circulatory system; Z87.448 Personal history of other diseases of urinary system; Z88.0 Allergy status to penicillin; X58.XXXA Exposure to other specified factors, initial encounter; Y93.89 Activity, other specified; Y92.89 Other specified places as the place of occurrence of the external cause
CPT/HCPCS: 0241U-QW; 36415; 50435; 80048; 80053; 83735; 84100; 85025; 85610; 85730; 86850; 86900; 86901; 93005; 93010; 96374; 96375; 96376; 99285-25; G0378; J8610